=== PATIENT | female | born 1940 | race Caucasian/White ===

== ENCOUNTER 2022-05-22 13:58 | Inpatient (IN) | payer MEDICARE, OTHER ==
[~2022-05-22] VITALS: Ht 165.1 cm; Wt 65.8 kg
[2022-05-22] MEDS ORDERED: guaiFENesin/CODEINE (ROBITUSSIN AC) 10ML UDC PO PRN (14:15)
[2022-05-22] MEDS ORDERED: ACETAMINOPHEN 325 MG TABLET PO PRN (14:15)
[2022-05-22] MEDS ORDERED: ALPRAZolam 0.25 MG (XANAX) TAB PO PRN (14:15)
[2022-05-22] MEDS ORDERED: ONDANSETRON 4 MG (ZOFRAN) ORAL DISSOLVE TAB PO PRN (14:15)
[2022-05-22] MEDS ORDERED: FLEET ENEMA ADULT 1 EA BTL PR PRN (14:15)
[2022-05-22] MEDS ORDERED: LACTULOSE SYRUP 10GM/15ML (ENULOSE) 30ML UDC PO PRN (14:15)
[2022-05-22] MEDS ORDERED: diphenhydrAMINE 25 MG TAB (BENADRYL) PO PRN (14:15)
[2022-05-22] MEDS ORDERED: LOPERAMIDE 2 MG (IMODIUM) TABLET PO PRN (14:15)
[2022-05-22] MEDS ORDERED: BISACODYL 10 MG SUPP (DULCOLAX) PR PRN (14:15)
[2022-05-22] MEDS ORDERED: CALCIUM CARBONATE 500 MG (TUMS) TAB.CHEW PO PRN (14:15)
[2022-05-22] MEDS ORDERED: MELATONIN 3 MG TABLET PO PRN (14:15)
[2022-05-22] MEDS ORDERED: DOCUSATE SODIUM 100 MG (COLACE) CAP PO PRN (14:15)
[2022-05-22] MEDS ORDERED: ALOE25CA2 PO (14:33)
[2022-05-22] MEDS ORDERED: PEDI18TA7 PO (14:33)
[2022-05-22] MEDS ORDERED: APIX2.5T PO (14:33)
[2022-05-22] MEDS ORDERED: HYDR-3924 PO (14:33)
[2022-05-22] MEDS ORDERED: MECO10002 SL (14:33)
[2022-05-22] MEDS ORDERED: TRM50T PO (14:33)
[2022-05-22] MEDS ORDERED: LYSI500C5 PO (14:33)
[2022-05-22] MEDS ORDERED: AMLO-251 PO (14:33)
[2022-05-22] MEDS ORDERED: ACHD5005 PO (14:33)
[2022-05-22] MEDS ORDERED: CHOL10007 PO (14:33)
[2022-05-22] MEDS ORDERED: CYAN100088 PO (14:33)
--- NOTE | 2022-05-22 15:34 | Occupational Therapy Eval ---
OT Evaluation-General/PLF Medical Diagnosis Admission Date 05/22/22 Medical Diagnosis: s/p R hip nailing Onset Date: May 19, 2022 Therapy Diagnosis Therapy Diagnosis: reduced adl status Precautions Precautions/Isolations: Fall Prevention, Standard Precautions Weight Bear Status Weight Bearing Restriction: Touch Toe Bearing Location Restriction: R LE Referral Physician: Patty Coats Reason: Evaluation/Treatment Medical History Pertinent Medical History: HTN Current History Pt reports having a mechanical fall resulting in femoral neck fracture. S/p nailing. TTWB RLE. Per patient, she lives with her spouse in a single story home. Pt reports being independent with both adls and iadls. She was not using any AD at baseline. Reviewed History: Yes Social History Home: Single Level Current Living Status: Spouse Entry Into Home: Stairs With Railing Steps Into Home: 3 ADL-Prior Level of Function SCALE: Activities may be completed with or without assistive devices. 2-Bjujshhsdt-msteefw completes the activity by him/herself with no assistance from a helper. 5-Set-up or Clean-up Assistance-helper sets up or cleans up; patient completes activity. [place] assists only prior to or following the activity. 4-Supervision or Touching Assistance-helper provides verbal cues and/or touching/steadying and/or contact guard assistance as patient completes activity. Assistance may be provided throughout the activity or intermittently. 3-Partial/Moderate Assistance-helper does LESS THAN HALF the effort. [place] lifts, holds or supports trunk or limbs, but provides less than half the effort. 2-Substantial/Maximal Assistance-helper does MORE THAN HALF the effort. [place] lifts or holds trunk or limbs and provides more than half the effort. 8-Zbftadxxk-wszooz does ALL the effort. Patient does none of the effort to complete the activity. Or, the assistance of 2 or more helpers is required for the patient to complete the activity. If activity was not attempted, code reason: 7-Patient Refused. 9-Not Applicable-not attempted and the patient did not perform the activity before the current illness, exacerbation or injury. 10-Not Attempted due to Environmental Limitations-(lack of equipment, weather restraints, etc.). 88-Not Attempted due to Medical Conditions or Safety Concerns. Self Care: Independent Functional Cognition: Independent DME/Equipment: Tub/Shower Drive Self: Yes OT Current Status Subjective Pt denies pain, agreeable to evaluation. Co-treat with PT secondary to fatigue from travel, poor adherence to weight bearing restrictions, reduced activity tolerance, and anticipated need of 2 skilled clinicians to progress indep and safety with adls and functional mobility. Appearance Pt left laying in bed with all needs within reach. Mental Status/Objective Patient Orientation: Person, Place, Situation Attachments: Colostomy/Ileostomy Current Glasses/Contacts: Yes Hearing Aids: No Dentures/Partials: No Hand Dominance: Right Upper Extremity ROM L shoulder: ~170 degrees AROM R shoulder: ~160 degrees AROM, reports pain Elbows-distally WNL Upper Extremity Strength R shoulder not tested secondary to pain L shoulder: 3-/5 Elbows-distally: 4/5 ADL-Treatment Eating (QC): 6 Oral Hygiene (QC): 4 Shower/Bathe Self (QC): 7 Upper Body Dressing (QC): 7 Lower Body Dressing (QC): 7 On/Off Footwear (QC): 4 Toileting Hygiene (QC): 7 Shower/dressing tasks deferred until tomorrow as pt already dressed and reports fatigue from travel. She was able to don/doff bilateral socks/shoes with supervision. Extra time to complete Right but no c/o pain with movements. Anticipate no assist needed to thread BLE's into pants and steadying assist needed for clothing management. Pt stood to complete grooming tasks with close SBA-CGA. Cues for adherence to TTWB precautions with demonstration/education on proper technique. 1 LOB during task with pt able to self recover. Pt is independent for bed mobility. Other Treatments Pt has difficulty with maintaining TTWB with all standing tasks, consistent cues required. Due to poor adherence, pt is instructed to treat RLE as NWB during ambulation. She was able to hop in parallel bars with min cues and SBA-CGA. Increased difficulty notable when transferring activity to walker. Pt stood at elevated mat to complete therapeutic activity while reaching slightly out of DEMARCUS. Focus on improving balance with WB restrictions, endurance, activity tolerance, BUE ROM, and safety needed for self care tasks. Again, consistent cues on maintaining weight bearing status with RLE. No LOB observed, close SBA- CGA for safety throughout activity. Pt fatigues easily and requires several seated rest breaks throughout. Pt felt nauseas and began to throw up after session had concluded on way back to room. Education OT Patient Education: Correct positioning, Modified ADL techniques, Purpose of tx/functional activities, Reviewed precautions, Rehab process, Safety issues, Transfer techniques Teaching Recipient: Patient, Family Teaching Methods: Demonstration, Discussion BIMS CAM BIMS Expression of Ideas and Wants: Without Difficulty Understanding Verbal Content: Understands Brief Interview/Mental Status: Yes IRF MARCUS BIMS: IRF MARCUS BIMS Response (Comments) Value Repitition of Three Words Three 3 Recalls Socks Yes, No Cue Required 2 Recalls Blue Yes, No Cue Required 2 Recalls Bed No, Could Not Recall 0 Year Correct 3 Month Accurate Within 5 Days 2 Day Correct 1 Total 13 [address] Staff Asses. Mental St[address] No Notes: CAM Mental Status Change/Baseline: 0 Inattention: 0 Disorganized thinkin Altered level of consciousness: 0 OT Short Term Goals Short Term Goals Time Frame: May 29, 2022 Eatin Oral hygiene: 5 Toileting hygiene: 4 Shower/bathe self: 4 Upper body dressin Lower body dressin Putting on/taking off footwear: 5 OT Long-Term Goals Long-Term Goals Time Frame: Jun 05, 2022 Acute change in mental status: 0 Inattention: 0 Disorganized thinkin Altered level of consciousness: 0 Eating (QC): 6 Oral Hygiene (QC): 6 Toileting Hygiene (QC): 6 Shower/Bathe Self (QC): 5 Upper Body Dressing (QC): 6 Lower Body Dressing (QC): 6 On/Off Footwear (QC): 6 Additional Goals: 1-Demonstrate ADL Tasks, 2-Verbalize Understanding, 3- ImproveStrength/Kaity 1=Demonstrate adherence to instructed precautions during ADL tasks. 2=Patient will verbalize/demonstrate understanding of assistive devices/modifications for ADL. 3=Patient will improve strength/tolerance for activity to enable patient to perform ADL's. OT Education/Plan Problem List/Assessment Assessment: Decreased Activ Tolerance, Decreased Safety Aware, Impaired Coordination, Impaired Funct Balance, Impaired I ADL's, Impaired Self-Care Skills Discharge Recommendations Plan/Recommendations: Continue POC Therapy Discharge Recommendati: Homemaker Support, Home & Family Equpiment Recommendations-D/C: Bath Chair Treatment Plan/Plan of Care Treatment,Training & Education: Yes Patient would benefit from OT for education, treatment and training to promote independence in ADL's, mobility, safety and/or upper extremity function for ADL's. Plan of Care: ADL Retraining, Functional Mobility, Group Exercise/Act as Ind, UE Funct Exercise/Act Treatment Duration: Jun 05, 2022 Frequency: At least 5 of 7 days/Wk (IRF) Estimated Hrs Per Day: 1.5 hours per day (75-90 min/day ) Agreement: Yes Rehab Potential: Good Time Start Time: 15:25 Stop Time: 16:55 DATE: May 22, 2022 Total Time Billed (hr/min): 90 Billed Treatment Time 1 visit EVM (10 min) ADL x2 (30 min) FA x3 (50 min) OT eval: ([id number]) Co-treat with PT ([id number]) Sia Dobbins OT May 22, 2022 15:34
--- NOTE | 2022-05-22 15:52 | Physical Therapy Evaluation ---
PT Evaluation-General Medical Diagnosis Admission Date Medical Diagnosis: s/p R hip nailing Onset Date: May 19, 2022 Therapy Diagnosis Therapy Diagnosis: impaired mobility Precautions Precautions/Isolations: Fall Prevention, Standard Precautions Weight Bear Status Right Lower Extremity: Right Touch Toe Bearing Left Lower Extremity: Left Full Weight Bearing Referral Physician: Dania Brambila DO Reason for Referral: Evaluation/Treatment Medical History Pertinent Medical History: HTN Reviewed History: Yes Social History Home: Single Level Current Living Status: Spouse Entry Into Home: Stairs With Railing PT Steps Into Home: 3 Prior Prior Level of Function SCALE: Activities may be completed with or without assistive devices. 2-Fzticmsrkw-ltpsyed completes the activity by him/herself with no assistance f rom a helper. 5-Set-up or Clean-up Assistance-helper sets up or cleans up; patient completes activity. [place] assists only prior to or following the activity. 4-Supervision or Touching Assistance-helper provides verbal cues and/or touching/steadying and/or contact guard assistance as patient completes activity. Assistance may be provided throughout the activity or intermittently. 3-Partial/Moderate Assistance-helper does LESS THAN HALF the effort. [place] lifts, holds or supports trunk or limbs, but provides less than half the effort. 2-Substantial/Maximal Assistance-helper does MORE THAN HALF the effort. [place] lifts or holds trunk or limbs and provides more than half the effort. 1-Agcrerrdp-dlorrl does ALL the effort. Patient does none of the effort to complete the activity. Or, the assistance of 2 or more helpers is required for the patient to complete the activity. If activity was not attempted, code reason: 7-Patient Refused. 9-Not Applicable-not attempted and the patient did not perform the activity before the current illness, exacerbation or injury. 10-Not Attempted due to Environmental Limitations-(lack of equipment, weather restraints, etc.). 88-Not Attempted due to Medical Conditions or Safety Concerns. Bed Mobility: 6 Transfers (B,C,W/C): 6 Gait: 6 Stairs: 6 Indoor Mobility (Ambulation): Independent Stairs: Independent Prior Devices Use: None PT Evaluation-Current Subjective Patient arrives via family vehicle, has no complaints of pain, agrees to PT. Will be co-treating with OT due to poor patient mobility, strength, endurance, severe debility, coordinate UE and LE during activity, safety and reduce risk of falls. Pain Section J - Health Conditions 1. Rarely or not at all 2. Occasionally 3. Frequently 4. Almost constantly 8. Unable to answer Pain Effect on Sleep: 2 Pain Interference with Therapy: 2 Pain Interference w/Day-to-Day: 2 Pt/Family Goals to be independent at home Objective Patient Orientation: Person, Place, Situation ROM/Strength ROM Lower Extremities NT Strength Lower Extremities NT Sensory Vision: Wears Glasses Hearing: Functional Hand Dominance: Right Sensation Right Lower Extremit: Intact Sensation Left Lower Extremity: Intact Transfers Roll Left & Right (QC): 4 Sit to Lying (QC): 4 Lying to Sitting/Side of Bed(Q: 4 Sit to Stand (QC): 4 Chair/Jyr-sa-Bbajb Xfer(QC): 4 Toilet Transfer (QC): 4 Car Transfer (QC): 4 CGA Gait Does the Patient Walk?: Yes Mode of Locomotion: Walk Anticipated Mode of Locomotion: Walk Walk 10 feet (QC): 4 Walk 50 ft with 2 Turns(QC): 88 Walk 150 ft (QC): 88 Walking 10ft/uneven surface-QC: 4 Distance: 10', 25', 10' Gait Assistive Device: FWW Comments/Gait Description CGA, Patient walks with slow gait speed and [place] not abide by toe touch weight bearing on R foot. Patient fatigues quickly. Therapist has to stop ambulation due to non-compliance with TTWB Wheelchair Training Does the Pt Use a Wheelchair?: Yes Distance: 100' Wheel 50 ft with 2 turns (QC): 3 Wheel 150 ft (QC): 88 Type of Wheelchair: Manual Min assist, patient needs assist when turning, cues for direction on how to turn, patient has a lot of difficulty with it. Stairs #of Steps: 1 1 Step (curb) (QC): 4 4 Steps (QC): 88 12 Steps (QC): 88 Walking Assistive Device: Walker CGA Balance Sitting Static: Normal Sitting Dynamic: Normal Standing Static: Normal Standing Dynamic: Fair Picking up an Object (QC): 4 (CGA using clinical documentation nurse) Treatment Ambulation, W/C Propulsion, Standing Balance with cone transfers side to side, parallel bar gait training. PT performed bed mobility and transfers, ambulation, WC mobility, stair training, balance and positioning during cone activity, OT performed dressing, ADL's, cone activity, UE positioning and safety during activity. Assessment/Needs Patient needs constant verbal cueing to remain TTWB on L leg. Patient fatigues quickly with ambulation and has deminished coordinaton with W/C proprulsion. Patient in bed post-tx with tray, phone, nurse notified nurse call missing from room. Rehab Potential: Fair PT Short Term Goals Short Term Goals Time Frame: May 22, 2022 Sit to stand: 4 (SBA) Chair/wxx-bt-mbvwl transfer: 4 (SBA) Walk 10 feet: 4 (SBA) Walk 50 feet with two turns: 4 (SBA) Walk 150 feet: 4 (SBA) PT Strategic Buyer Goals Longterm Goals PT Strategic Buyer Goals Time Frame: Jun 12, 2022 Roll Left to Right (QC): 6 Sit to Lying (QC): 6 Lying-Sitting on Side/Bed(QC): 6 Sit to Stand (QC): 6 Chair/Aup-fc-Nykaa Xfer(QC): 6 Toilet/Commode Transfer (QC): 6 Car Transfer (QC): 6 Does the Patient Walk: Yes Walk 10 feet (QC): 6 Walk 10ft-Uneven Surface(QC): 6 Walk 50ft with 2 Turns (QC): 6 Walk 150 ft (QC): 6 Wheel 50 feet with 2 turns (QC: 6 Type: Manual Wheel 150 feet: 6 Type: Manual 1 Step (curb) (QC): 6 4 Steps (QC): 6 12 Steps (QC): 88 Picking up an Object (QC): 6 PT Plan Problem List Problem List: Activity Tolerance, Functional Strength, Safety, Balance, Gait, Transfer, Bed Mobility, ROM Treatment/Plan Treatment Plan: Continue Plan of Care Treatment Plan: Bed Mobility, Education, Functional Activity Kaity, Functional Strength, Group Therapy, Gait, Safety, Therapeutic Exercise, Transfers Treatment Duration: Jun 12, 2022 Frequency: At least 5 of 7 days/Wk (IRF) Estimated Hrs Per Day: 1.5 hours per day Patient and/or Family Agrees t: Yes Safety Risks/Education Patient Education: Gait Training, Transfer Techniques, Steps, Correct Positioning, Safety Issues Teaching Recipient: Patient Teaching Methods: Demonstration, Discussion Response to Teaching: Reinforcement Needed Discharge Recommendations Plan Patient will perform bed mobility and transfer training, balance and endurance training, functional strengthening, stair training, gait training, and education, to improve functional mobility and independence at home. Therapy Discharge Recommendati: Home & Family, Post Acute PT Time Time In: 1514 Time Out: 1654 DATE: May 22, 2022 Total Billed Treatment Time: 90 Total Billed Treatment 1 visit EVM 10' FA 80' PT eval from [id number], OT eval from [id number], co-treat from [id number] ELAINE LOVELL PT May 22, 2022 15:52
--- NOTE | 2022-05-22 17:18 | Progress Note ---
MORALES WALL 05/22/22 1718: Progress Note S Patient is an 82 year old woman admitted to inpatient rehab following a fracture of her right femoral neck after falling on concrete last Peter, 05/17. Her fracture was treated with percutaneous pinning and she is up and mobilizing with assistance. Her primary care doctor is Dr. Mejia in [place]. She has a past medical history of CKD stage III and hypertension. 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 No previous history of cardiac or pulmonary disease. Current medications include tramadol, hydrocodone, L-lysine, norvasc, hydralazine, apixaban, B12, cholecalciferol, and flintstones vitamins with iron. She is on a cardiac diet. Experiences no pain while at rest. Notes minor nausea since around noon as well as fatigue even though she slept well the previous night. Denies SOB, chest pain, chills, urinary issues, or feeling feverish. She has a colostomy bag and notes no problems with stool consistency. Her goal on discharge is to go home with her spouse. O Cardiac: holosystolic murmur noted with possible AV block, no S3 or S4 heart sounds auscultated, pulses equal bilaterally in radial and dorsalis pedis arteries (2+), no apparent JVD Pulmonary: lungs clear to auscultation bilaterally A/P Status post right femoral neck fracture - fracture stabilized through percutaneous pinning. Patient to continue OT and PT. Monitor for signs of infection or anemia. Goal to be discharged home with spouse. May need a bone scan to assess further risk of fractures. Continue prescribed pain medications as needed. Hypertension - continue medical management with norvasc and hydralazine. Continue cardiac diet. Chronic kidney disease Stage III - continue medical management, chemistry panel to assess kidney function. Avoid nephrotoxic drugs. Possible aortic stenosis - echocardiogram to assess for structural abnormalities Possible AV block - may need EKG to assess for possible arrhythmia DVT prophylaxis - apixaban DANIA BRAMBILA DO 05/23/22 0558: Supervisory-Addendum Brief Verification & Attestation Participated in pt care: history, MDM, physical Personally performed: exam, history, MDM, supervision of care Care discussed with: Medical Student Procedures: n/a Results interpretation: Verified all documentation Verification and Attestation of Medical Student E/M Service A medical student performed and documented this service in my presence. I reviewed and verified all information documented by the medical student and made modifications to such information, when appropriate. I personally performed the physical exam and medical decision making. Dania Brambila, May 23, 2022,05:58 MORALES WALL May 22, 2022 17:18 DANIA BRAMBILA DO May 23, 2022 05:58
--- NOTE | 2022-05-22 17:29 | PM&R Progress Note ---
Subjective HPI/CC On Admission Date Seen by Provider: May 22, 2022 Time Seen by Provider: 16:00 Subjective/Events-last exam Chief complaint: Right femoral neck fracture HPI: This is an 82-year-old female clinic patient of Dr. Black in [place] who presents following a successful right femoral neck fracture repair at [facility]. She has a past medical history of chronic kidney disease and hypertension. Her prior level of function was independent without the use of assistive device. She lives at home with her spouse. She does have a colostomy. S Patient is an 82 year old woman admitted to inpatient rehab following a fracture of her right femoral neck after falling on concrete last Friday, 05/17. Her fracture was treated with percutaneous pinning and she is up and mobilizing with assistance. Her primary care doctor is Dr. Mejia in [place]. She has a past medical history of CKD stage III and hypertension. 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 No previous history of cardiac or pulmonary disease. Current medications include tramadol, hydrocodone, L-lysine, norvasc, hydralazine, apixaban, B12, cholecalciferol, and flintstones vitamins with iron. She is on a cardiac diet. Experiences no pain while at rest. Notes minor nausea since around noon as well as fatigue even though she slept well the previous night. Denies SOB, chest pain, chills, urinary issues, or feeling feverish. She has a colostomy bag and notes no problems with stool consistency. Her goal on discharge is to go home with her spouse. O Cardiac: holosystolic murmur noted with possible AV block, no S3 or S4 heart sounds auscultated, pulses equal bilaterally in radial and dorsalis pedis arteries (2+), no apparent JVD Pulmonary: lungs clear to auscultation bilaterally A/P Status post right femoral neck fracture - fracture stabilized through percutaneous pinning. Patient to continue OT and PT. Monitor for signs of infection or anemia. Goal to be discharged home with spouse. May need a bone scan to assess further risk of fractures. Continue prescribed pain medications as needed. Hypertension - continue medical management with norvasc and hydralazine. Continue cardiac diet. Chronic kidney disease Stage III - continue medical management, chemistry panel to assess kidney function. Avoid nephrotoxic drugs. Possible aortic stenosis - echocardiogram to assess for structural abnormalities Possible AV block - may need EKG to assess for possible arrhythmia DVT prophylaxis - apixaban Objective Exam Vital Signs Vital Signs Date Time Temp Pulse Resp B/P (MAP) Pulse Ox O2 Delivery O2 Flow Rate FiO2 05/22/22 20:28 92 Room Air 05/22/22 20:00 36.7 78 16 145/67 (93) Capillary Refill : Results/Procedures Lab Laboratory Tests 05/23/22 05:20 Patient resulted labs reviewed. FIM Transfers Therapy Code Descriptions/Definitions Functional [place] Measure: 0=Not Assessed/NA 4=Minimal Assistance 1=Total Assistance 5=Supervision or Setup 2=Maximal Assistance 6=Modified [place] 3=Moderate Assistance 7=Complete IndependenceSCALE: Activities may be completed with or without assistive devices. 9-Zawvnrebwk-uoxohrk completes the activity by him/herself with no assistance from a helper. 5-Set-up or Clean-up Assistance-helper sets up or cleans up; patient completes activity. [place] assists only prior to or following the activity. 4-Supervision or Touching Assistance-helper provides verbal cues and/or touching/steadying and/or contact guard assistance as patient completes activity. Assistance may be provided throughout the activity or intermittently. 3-Partial/Moderate Assistance-helper does LESS THAN HALF the effort. [place] lifts, holds or supports trunk or limbs, but provides less than half the effort. 2-Substantial/Maximal Assistance-helper does MORE THAN HALF the effort. [place] lifts or holds trunk or limbs and provides more than half the effort. 1-Zlabghffd-lpzaxt does ALL the effort. Patient does none of the effort to complete the activity. Or, the assistance of 2 or more helpers is required for the patient to complete the activity. If activity was not attempted, code reason: 7-Patient Refused. 9-Not Applicable-not attempted and the patient did not perform the activity before the current illness, exacerbation or injury. 10-Not Attempted due to Environmental Limitations-(lack of equipment, weather restraints, etc.). 88-Not Attempted due to Medical Conditions or Safety Concerns. Roll Left to Right (QC): 4 Sit to Lying (QC): 4 Sit to Stand (QC): 4 Chair/Vmx-nd-Jifgp Xfer(QC): 4 Car Transfer (QC): 4 Gait Training Does the Patient Walk?: Yes Walk 10 feet (QC): 4 Walk 50 ft with 2 Turns(QC): 88 Walk 150 ft (QC): 88 Walking 10ft/uneven surface-QC: 4 Gait Assistive Device: FWW Wheelchair Training Does the Pt Use a Wheelchair?: Yes Distance: 100' Wheel 50 ft with 2 turns (QC): 3 Wheel 150 ft (QC): 88 Type of Wheelchair: Manual Stair Training 1 Step (curb) (QC): 4 4 Steps (QC): 88 12 Steps (QC): 9 Balance Picking up an Object (QC): 4 (CGA using bobbin coil winder) ADL-Treatment Eating (QC): 6 Oral Hygiene (QC): 4 Shower/Bathe Self (QC): 7 Upper Body Dressing (QC): 7 Lower Body Dressing (QC): 7 On/Off Footwear (QC): 4 Toileting Hygiene (QC): 7 Assessment/Plan Assessment and Plan (1) Right femoral shaft fracture DEBBIE LILLY DO May 22, 2022 17:29
[2022-05-22] MEDS ORDERED: PATIENT MAY USE OWN MEDS, ALL MC SCH (17:30)
[2022-05-22 20:00] VITALS: BP 145/67
[2022-05-22] MEDS: SENNA W/DOCUSATE (SENOKOT S) TABLET PO SCH (20:15)
[2022-05-22] MEDS: hydrALAZINE (APRESOLINE) 25 MG TAB PO SCH (20:15)
[2022-05-22] MEDS: polyethylene glycoL POWDER 17 GM (MIRALAX) PACK PO SCH (20:15)
[2022-05-22] MEDS: APIXABAN 2.5 MG (ELIQUIS) TABLET PO SCH (20:15)
[2022-05-22] MEDS: DOCUSATE SODIUM 100 MG (COLACE) CAP PO SCH (20:15)
[2022-05-22] MEDS ORDERED: NON-FORMULARY MEDICATION 1 EA EA (Hydralazine HCl 50 MG) PO SCH (21:00)
[2022-05-23 05:30] LABS: BASOPHILS % (AUTO) 0 % (0-10); EOSINOPHILS # (AUTO) 0.2 10^3/uL (0.0-0.3); EOSINOPHILS % (AUTO) 3 % (0-10); HEMATOCRIT 34 % (35-52); HEMOGLOBIN 10.9 g/dL (11.5-16.0); LYMPHOCYTES # (AUTO) 0.9 10^3/uL (1.0-4.0); LYMPHOCYTES % (AUTO) 17 % (12-44); MEAN CORPUSCULAR HEMOGLOBIN 30 pg (25-34); MEAN CORPUSCULAR HGB CONC 33 g/dL (32-36); MEAN CORPUSCULAR VOLUME 94 fL (80-99); MEAN PLATELET VOLUME 9.8 fL (9.0-12.2); MONOCYTES # (AUTO) 0.4 10^3/uL (0.0-1.0); MONOCYTES % (AUTO) 8 % (0-12); NEUTROPHILS % (AUTO) 72 % (42-75); PLATELET COUNT 236 10^3/uL (130-400); WHITE BLOOD COUNT 5.5 10^3/uL (4.3-11.0)
[2022-05-23 05:39] LABS: ALBUMIN 3.4 GM/DL (3.2-4.5); POTASSIUM 4.8 MMOL/L (3.6-5.0)
[2022-05-23 05:40] LABS: CALCIUM 9.2 MG/DL (8.5-10.1)
[2022-05-23 05:41] LABS: TOTAL PROTEIN 6.3 GM/DL (6.4-8.2)
[2022-05-23 05:43] LABS: BILIRUBIN,TOTAL 0.3 MG/DL (0.1-1.0)
[2022-05-23 05:45] LABS: CREATININE SERUM 1.32 MG/DL (0.60-1.30)
--- NOTE | 2022-05-23 06:08 | PM&R Post Admission Assessment ---
PM&R HP Date of Visit: May 22, 2022 Time of Visit: 16:00 History of Present Illness Chief complaint: Right femoral neck fracture HPI: This is an 82-year-old female clinic patient of Dr. Black in [place] who presents following a successful right femoral neck fracture repair at [facility]. She has a past medical history of chronic kidney disease and hypertension. Her prior level of function was independent without the use of assistive device. She lives at home with her spouse. She does have a colostomy. S Patient is an 82 year old woman admitted to inpatient rehab following a fracture of her right femoral neck after falling on concrete last Friday, 05/17. Her fracture was treated with percutaneous pinning and she is up and mobilizing with assistance. Her primary care doctor is Dr. Mejia in [place]. She has a past medical history of CKD stage III and hypertension. 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 No previous history of cardiac or pulmonary disease. Current medications include tramadol, hydrocodone, L-lysine, norvasc, hydralazine, apixaban, B12, cholecalciferol, and flintstones vitamins with iron. She is on a cardiac diet. Experiences no pain while at rest. Notes minor nausea since around noon as well as fatigue even though she slept well the previous night. Denies SOB, chest griselda n, chills, urinary issues, or feeling feverish. She has a colostomy bag and notes no problems with stool consistency. Her goal on discharge is to go home with her spouse. O Cardiac: holosystolic murmur noted with possible AV block, no S3 or S4 heart sounds auscultated, pulses equal bilaterally in radial and dorsalis pedis arteries (2+), no apparent JVD Pulmonary: lungs clear to auscultation bilaterally A/P Status post right femoral neck fracture - fracture stabilized through percutaneous pinning. Patient to continue OT and PT. Monitor for signs of infection or anemia. Goal to be discharged home with spouse. May need a bone scan to assess further risk of fractures. Continue prescribed pain medications as needed. Hypertension - continue medical management with norvasc and hydralazine. Continue cardiac diet. Chronic kidney disease Stage III - continue medical management, chemistry panel to assess kidney function. Avoid nephrotoxic drugs. Possible aortic stenosis - echocardiogram to assess for structural abnormalities Possible AV block - may need EKG to assess for possible arrhythmia DVT prophylaxis - apixaban Past Envkdxt-Iwygdu-Dbhiso Hx Past Med/Social Hx: Reviewed Nursing Past Med/Soc Hx, Reviewed and Corrections made Patient Social History Marrital Status: Employed/Student: retired Alcohol Use: Denies Use Smoking Status: Never a Smoker Past Medical History Surgeries: Abdominal, Orthopedic Cardiac: High Cholesterol, Valvular Heart Disease Prior Level of Function Bed Mobility: 6 Transfers: 6 Gait: 6 Stairs: 6 Indoor Mobility (Ambulation): Independent Stairs: Independent Prior Devices Use: None Self Care: Independent Functional Cognition: Independent Drive Self: Yes Current Level of Fuctioning Roll Left to Right: 4 Sit to Lyin Lying to Sitting/Side of Bed: 4 Sit to Stand: 4 Chair/Zad-am-Efhgb Xfer: 4 Car Transfer: 4 Does the Patient Walk: Yes Mode of Locomotion: Walk Anticipated Mode of Locomotion: Walk Walk 10 feet: 4 Walk 50 ft with 2 Turns: 88 Walk 150 ft: 88 Walking 10ft on uneven surface: 4 Gait Assistive Device: FWW Does the Pt Use a Wheelchair: Yes Wheelchair Distance: 100' Wheel 50 ft with 2 turns: 3 Wheel 150 ft: 88 Type of Wheelchair: Manual 1 Step (curb): 4 4 Steps: 88 Walking Assistive Device: Walker 12 Steps: 9 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) Eatin Oral Hygiene: 4 Shower/Bathe Self: 7 Upper Body Dressin Lower Body Dressin On/Off Footwear: 4 Toileting Hygiene: 7 PM&R Allergy/Meds/Data Review Allergies Coded Allergies: No Allergy Information Available (Unverified , 05/22/22) Home Medications Scheduled Aloe Vera (Aloe Vera), 25 MG PO DAILY, (Reported) Amlodipine Besylate (Amlodipine Besylate), 10 MG PO DAILY, (Reported) Apixaban (Eliquis), 2.5 MG PO BID, (Reported) Cholecalciferol (Vitamin D3) (Vitamin D3), 25 MCG PO DAILY, (Reported) Hydralazine HCl (Hydralazine HCl), 50 MG PO BID, (Reported) Lysine HCl (l-Lysine), 500 MG PO DAILY, (Reported) Mecobalamin (B-12), 1,000 MCG SL DAILY, (Reported) Pediatric Multivit No.203/Iron (Flintstones with Iron Tab Chew), 1 EA PO DAILY, (Reported) Scheduled PRN Hydrocodone/Acetaminophen (Hydrocodone-Acetamin 5-325 mg), 1 TAB PO Q4H PRN for PAIN-MODERATE (5-7), (Reported) Tramadol HCl (Tramadol HCl), 50-100 MG PO Q6H PRN for PAIN-MODERATE (5-7), (Reported) Discontinued Medications Cyanocobalamin (Vitamin B-12) (B-12), 1,000 MCG PO DAILY, (Reported) Discontinued Reason: No Longer Taking Current Medications Current Medications Reviewed Laboratory Data Laboratory Tests 05/23/22 05:20: White Blood Count 5.5, Red Blood Count 3.58L, Hemoglobin 10.9L, Hematocrit 34L, Mean Corpuscular Volume 94, Mean Corpuscular Hemoglobin 30, Mean Corpuscular Hemoglobin Concent 33, Red Cell Distribution Width 12.6, Platelet Count 236, Mean Platelet Volume 9.8, Immature Granulocyte % (Auto) 0, Neutrophils (%) (Auto) 72, Lymphocytes (%) (Auto) 17, Monocytes (%) (Auto) 8, Eosinophils (%) (Auto) 3, Basophils (%) (Auto) 0, Neutrophils # (Auto) 4.0, Lymphocytes # (Auto) 0.9L, Monocytes # (Auto) 0.4, Eosinophils # (Auto) 0.2, Basophils # (Auto) 0.0, Immature Granulocyte # (Auto) 0.0, Sodium Level 139, Potassium Level 4.8, Chloride Level 105, Carbon Dioxide Level 26, Anion Gap 8, Blood Urea Nitrogen 22H, Creatinine 1.32H, Estimat Glomerular Filtration Rate 41, BUN/Creatinine Ratio 17, Glucose Level 123H, Calcium Level 9.2, Corrected Calcium 9.7, Total Bilirubin 0.3, Aspartate Amino Transf (AST/SGOT) 16, Alanine Aminotransferase ( ALT/SGPT) 6, Alkaline Phosphatase 64, Total Protein 6.3L, Albumin 3.4 Review of Systems Constitutional: see HPI, malaise, weakness EENTM: no symptoms reported Respiratory: no symptoms reported Cardiovascular: no symptoms reported Gastrointestinal: no symptoms reported Genitourinary: no symptoms reported Musculoskeletal: joint pain Skin: no symptoms reported All Other Systems Reviewed Negative Unless Noted: Yes Physical Exam Physical Exam Vital Signs Vital Signs - First Documented 05/22/22 20:00 Temp 36.7 Pulse 78 Resp 16 B/P (MAP) 145/67 (93) Pulse Ox 92 O2 Delivery Room Air Capillary Refill : Height, Weight, BMI Height: '" Weight: lbs. oz. kg; 24.68 BMI Method: General Appearance: No Apparent Distress, WD/WN, Chronically ill Eyes: Bilateral Eye Normal Inspection, Bilateral Eye PERRL HEENT: PERRL/EOMI, Normal ENT Inspection, Pharynx Normal Neck: Full Range of Motion, Normal Inspection, Non Tender, Supple, Carotid Bruit Respiratory: Chest Non Tender, Lungs Clear, Normal Breath Sounds, No Accessory Muscle Use, No Respiratory Distress Cardiovascular: Regular Rate, Rhythm, No Edema, No Gallop, No JVD, Normal Peripheral Pulses, Systolic Murmur Gastrointestinal: Normal Bowel Sounds, No Organomegaly, No Pulsatile Mass, Non Tender, Soft Back: Normal Inspection, No CVA Tenderness, No Vertebral Tenderness Extremity: Normal Capillary Refill, Normal Inspection, Normal Range of Motion (Except right leg), Non Tender, No Calf Tenderness, No Pedal Edema Neurologic/Psychiatric: Alert, Oriented x3, Normal Mood/Affect, room server II-XII Norm as Tested, Abnormal Gait, Motor Weakness (Right leg) Skin: Normal Color, Warm/Dry Lymphatic: No Adenopathy PM&R Medical Assessment & Plan REHAB/MEDICAL ASSESSMENT AND PLAN: REHAB IMPAIRMENT GROUP: Right hip fracture ETIOLOGIC DIAGNOSIS: Right hip fracture The comorbidities that impact the patients function and/or functional outcome by: advanced age, fall risk, valvular disease REHAB PLAN: The patient is being admitted to our comprehensive inpatient rehabilitation faci lity and can tolerate the intensity of service consisting of at least: 180 minutes of therapy a day, 5 out of 7 days a week Rehab treatment will consist of: PT OT will focus on regaining function in order to prevent falls and use AD devices in order to regain function in order to return home The patient/family has a good understanding of our discharge process and will benefit from an interdisciplinary inpatient rehabilitation program. The patient has potential to make improvement and is in need of at least two of the following multidisciplinary therapies including but not limited to physical, occupational, speech, and prosthetics and orthotics. Additionally the patient will need services from respiratory, nutritional services, wound care, psychology, etc. (Customize this to each patient). Given the patients complex condition and risk of further medical complications, rehabilitation services cannot be safely or effectively provided at a lower level of care such as a long-term facility. BARRIERS TO DISCHARGE: Right leg pain ESTIMATED LOS: 7 days DISPOSITION: Home RELEVANT CHANGES SINCE PREADMISSION SCREENING: I have compared the patients medical and functional status at the time of the preadmission screening and there are: no changes PROGNOSIS: Good REHABILITATION GOALS: 1. PT OT will focus on regaining function in order to prevent falls and use AD devices in order to regain function in order to return home All the above goals were reviewed with the patient and he/she is in agreement. By signing this document, I acknowledge that I have personally performed a full physical examination on this patient within 24 hours of admission to this inpatient rehabilitation facility and have determined the patient to be able to tolerate the above course of treatment at an intensive level for a reasonable period of time. I will be completing a detailed individualized Plan of Care for this patient by day #4 of the patients stay based upon the Preadmission Screen, the Post-Admission Evaluation, and the therapy evaluations. Admission Dx/Comorbidities: (1) Right femoral shaft fracture ICD Codes: S72.301A - Unspecified fracture of shaft of right femur, initial encounter for closed fracture Assessment/Plan Assessment and Plan Assess & Plan/Chief Complaint Assessment: Right femoral neck fracture status post uncomplicated repair Hypertension Cardiac murmur obtaining echocardiogram Chronic kidney disease Colostomy status Plan: Pain control Home meds Intensive rehab DEBBIE LILLY DO May 23, 2022 06:08
[2022-05-23 08:00] VITALS: BP 155/73
--- NOTE | 2022-05-23 08:13 | ST Cognitive Linguistic Eval ---
Speech Evaluation-General Medical Diagnosis s/p R Hip Nailing Onset Date: May 19, 2022 Therapy Diagnosis Therapy Diagnosis: Intact Cognition (Baseline) Precautions Precautions: Fall Precautions/Isolations: Fall Prevention, Standard Precautions Referral Referring Physician: Dr. Brambila Reason for Referral: Evaluation/Treatment Medical History Pertinent Medical History: HTN Current History The patient is an 82 year-old female with a past medical history of HTN, who presented to the acute rehabilitation unit following a fall resulting in a right femoral neck fracture. Reviewed History: Yes Social History Current Living Status: Spouse Speech PLF-Current Status Prior Level of Function The patient denied concerns with her speech, language, or cognition. Subjective The patient was seated upright in her recliner, awake and alert, upon entrance to her room by the clinician. The patient greeted the clinician appropriately and was agreeable to participation in the cognitive linguistic assessment. Language Eval: Auditory Comprehends Simple Yes/No Ques: Functional Indent/Objects Multiple [place]: Functional Follows 1-Step Commands: Functional Follows General Conversations: Functional Language Eval: Verbal Language Completes Spontaneous Greeting: Functional Produces Auto, Serial Info: Functional Word Finding: Functional Requests Basic Needs: Functional States Basic Personal Info: Functional Expresses Complex Ideas: Functional Language Evaluation: Reading Follows Simple Written Direct: Functional Language Evaluation: Writing Writes to Simple Dictation: Functional Cognitive Patient Orientation The patient was independently oriented to self, location, month, day of the week, date, and year. Objective Cognitive Domain Attention: WNL Memory: WNL Problem Solving: Functional Executive Functions: WNL Visuospatial Skills: WNL Composite Severity Rating: WNL Clock Drawing Severity Rating: WNL Objective Formal/Standardized Tests [facility] Mental Status Exam (UMS) Results The patient demonstrated a result of +28/30 on the SLUMS correlating to a cognitive linguistic score within normal limits. Oral Motor/Speech Production The patient does not display dysarthria or apraxia of speech. The patient is 100% intelligible in known and unknown contexts. Impression The patient demonstrated intact cognitive linguistic skills. Speech-Plan Treatment Plan Speech Therapy Treatment Plan: Discontinue ST Treatment Duration: May 23, 2022 Frequency: 1 time per week Estimated Hrs Per Day: .5 hour per day Rehab Potential: Good Safety Risks/Education Teaching Recipient: Patient Teaching Methods: Discussion Response to Teaching: Verbalize Understanding Education Topics Provided: Results, Recommendations, Plan of Care Time Speech Therapy Time In: 10:15 Speech Therapy Time Out: 10:45 DATE: May 23, 2022 Total Billed Time: 30 Billed Treatment Time 1, RUPINDER BARNES ELIZ[facility]ETH ST May 23, 2022 08:13
[2022-05-23] MEDS: hydrALAZINE (APRESOLINE) 25 MG TAB PO SCH ×2 (08:26→20:41)
[2022-05-23] MEDS: VITAMIN D3 25 MCG (1,000 UNITS) TABLET PO SCH (08:26)
[2022-05-23] MEDS: amLODIPine 10 MG (NORVASC) TAB PO SCH (08:26)
[2022-05-23] MEDS: SENNA W/DOCUSATE (SENOKOT S) TABLET PO SCH ×2 (08:26→20:55)
[2022-05-23] MEDS: DOCUSATE SODIUM 100 MG (COLACE) CAP PO SCH ×2 (08:26→20:55)
[2022-05-23] MEDS: MULTIVITAMINS LIQUID 15 ML UDC PO SCH ×2 (08:26→08:27)
--- NOTE | 2022-05-23 08:42 | Speech Therapy Progress Note ---
Therapy Progress Note Speech pathology attempted completion of the cognitive linguistic assessment at 0830. At this time, the patient is undergoing a procedure. ST will re-attempt the evaluation at 1015. ASHLEY DIAZ May 23, 2022 08:42
[2022-05-23] MEDS ORDERED: [UNRECOGNIZED DRUG - REMARK] PO SCH (09:00)
[2022-05-23] MEDS ORDERED: ALOE VERA 25 MG PO SCH (09:00)
[2022-05-23] MEDS ORDERED: NON-FORMULARY MEDICATION 1 EA EA (Cholecalciferol (Vitamin D3) (Vitamin D3) 25 MCG) PO SCH (09:00)
[2022-05-23] MEDS ORDERED: LYSINE HCL 500 MG PO SCH (09:00)
[2022-05-23] MEDS: polyethylene glycoL POWDER 17 GM (MIRALAX) PACK PO SCH ×2 (09:17→20:55)
[2022-05-23] MEDS: APIXABAN 2.5 MG (ELIQUIS) TABLET PO SCH ×2 (09:17→20:41)
--- NOTE | 2022-05-23 10:19 | Occupational Ther Daily Note ---
OT Current Status-Daily Note Subjective Pt laying in bed. She agrees to a shower. Appearance Pt left sitting in recliner with all needs within reach. Mental Status/Objective Patient Orientation: Person, Place, Time, Situation Attachments: Colostomy/Ileostomy ADL-Treatment Therapy Code Descriptions/Definitions Functional [place] Measure: 0=Not Assessed/NA 4=Minimal Assistance 1=Total Assistance 5=Supervision or Setup 2=Maximal Assistance 6=Modified [place] 3=Moderate Assistance 7=Complete IndependenceSCALE: Activities may be completed with or without assistive devices. 0-Lnnfgbidrk-hkbvyzt completes the activity by him/herself with no assistance from a helper. 5-Set-up or Clean-up Assistance-helper sets up or cleans up; patient completes activity. Lorenzo assists only prior to or following the activity. 4-Supervision or Touching Assistance-helper provides verbal cues and/or touching/steadying and/or contact guard assistance as patient completes activity. Assistance may be provided throughout the activity or intermittently. 3-Partial/Moderate Assistance-helper does LESS THAN HALF the effort. Lorenzo lifts, holds or supports trunk or limbs, but provides less than half the effort. 2-Substantial/Maximal Assistance-helper does MORE THAN HALF the effort. Lorenzo lifts or holds trunk or limbs and provides more than half the effort. 2-Cobry[place]ne-ervwyl does ALL the effort. Patient does none of the effort to complete the activity. Or, the assistance of 2 or more helpers is required for the patient to complete the activity. If activity was not attempted, code reason: 7-Patient Refused. 9-Not Applicable-not attempted and the patient did not perform the activity before the current illness, exacerbation or injury. 10-Not Attempted due to Environmental Limitations-(lack of equipment, weather restraints, etc.). 88-Not Attempted due to Medical Conditions or Safety Concerns. Oral Hygiene (QC): 4 Shower/Bathe Self (QC): 4 Upper Body Dressing (QC): 5 Lower Body Dressing (QC): 4 On/Off Footwear: 5 Toileting Hygiene (QC): 4 Toilet Transfer (QC): 4 Pt often plops into chairs, bed, etc. when going to sit. Pt requires constant cues for following TTWB with minimal follow through/retention of what TTWB precautions mean. Pt transferred to toilet with SBA for safety. Pt able to perform toileting hygiene with SBA. Pt completes shower 75% in sitting, only standing to wash quynh-area. Pt able to don LB clothing with SBA for when pt stood to pull underwear/pants over hips. Pt able to don UB clothing with set up assist. Pt stood at sink with SBA for grooming tasks. No LOB and unsteadiness noted during session. Education and demonstration about differences about shower chair and shower bench was given. Pt reported having a smaller bathroom with the toilet very close to the tub, so a shower chair would be better for her. Pt able to transfer into both chair and bench with SBA and verbal cues for technique. Other Treatment Pt required cues, education and demonstration for propelling w/c properly, with fair follow through. Pt completed 1x10 UE exercises with yellow theraband. Pt educated on importance of performing exercises 2-3 x/day to increase UE strength to improve ambulation and transfers while following TTWB. Education OT Patient Education: Correct positioning, Energy conservation, Exercise program, Home exercise program, Modified ADL techniques, Progress toward Goal/Update tx plan, Purpose of tx/functional activities, Reviewed precautions, Rehab process, Safety issues, Transfer techniques, W/C management Teaching Recipient: Patient Teaching Methods: Demonstration, Discussion Response to Teaching: Verbalize Understanding, Return Demonstration, Reinforcement Needed OT Short Term Goals Short Term Goals Time Frame: May 29, 2022 Eatin Oral hygiene: 5 Toileting hygiene: 4 Shower/bathe self: 4 Upper body dressin Lower body dressin Putting on/taking off footwear: 5 OT Detention Goals Manager City Goals Time Frame: Jun 05, 2022 Acute change in mental status: 0 Inattention: 0 Disorganized thinkin Altered level of consciousness: 0 Eating (QC): 6 Oral Hygiene (QC): 6 Toileting Hygiene (QC): 6 Shower/Bathe Self (QC): 5 Upper Body Dressing (QC): 6 Lower Body Dressing (QC): 6 On/Off Footwear (QC): 6 Additional Goals: 1-Demonstrate ADL Tasks, 2-Verbalize Understanding, 3- ImproveStrength/Kaity 1=Demonstrate adherence to instructed precautions during ADL tasks. 2=Patient will verbalize/demonstrate understanding of assistive devices/modifications for ADL. 3=Patient will improve strength/tolerance for activity to enable patient to perform ADL's. OT Education/Plan Problem List/Assessment Assessment: Decreased Activ Tolerance, Decreased Safety Aware, Decreased UE Strength, Impaired Coordination, Impaired Funct Balance, Impaired I ADL's, Impaired Self-Care Skills Discharge Recommendations Plan/Recommendations: Continue POC Equpiment Recommendations-D/C: Bath Chair Treatment Plan/Plan of Care Treatment,Training & Education: Yes Patient would benefit from OT for education, treatment and training to promote independence in ADL's, mobility, safety and/or upper extremity function for ADL's. Plan of Care: ADL Retraining, Functional Mobility, Group Exercise/Act as Ind, UE Funct Exercise/Act Treatment Duration: Jun 05, 2022 Frequency: At least 5 of 7 days/Wk (IRF) Estimated Hrs Per Day: 1.5 hours per day (75-90 min/day ) Agreement: Yes Rehab Potential: Good Time Start Time: 09:00 Stop Time: 10:15 DATE: May 23, 2022 Total Time Billed (hr/min): 75 Billed Treatment Time 1 visit ADL x4 (60 min) EX (15 min) Sia Dobbins OT May 23, 2022 10:19
--- NOTE | 2022-05-23 11:48 | PM&R Progress Note ---
Subjective HPI/CC On Admission Date Seen by Provider: May 23, 2022 Time Seen by Provider: 12:00 Subjective/Events-last exam 05/23/22: Patient doing well Pain is controlled without pain pills Labs reviewed Echo ordered No other concerns Chief complaint: Right femoral neck fracture HPI: This is an 82-year-old female clinic patient of Dr. Black in [place] who presents following a successful right femoral neck fracture repair at [facility]. She has a past medical history of chronic kidney disease and h ypertension. Her prior level of function was independent without the use of assistive device. She lives at home with her spouse. She does have a colostomy. S Patient is an 82 year old woman admitted to inpatient rehab following a fracture of her right femoral neck after falling on concrete last Friday, 05/17. Her fracture was treated with percutaneous pinning and she is up and mobilizing with assistance. Her primary care doctor is Dr. Mejia in [place]. She has a past medical history of CKD stage III and hypertension. 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 No previous history of cardiac or pulmonary disease. Current medications include tramadol, hydrocodone, L-lysine, norvasc, hydralazine, apixaban, B12, cholecalciferol, and flintstones vitamins with iron. She is on a cardiac diet. Experiences no pain while at rest. Notes minor nausea since around noon as well as fatigue even though she slept well the previous night. Denies SOB, chest pa in, chills, urinary issues, or feeling feverish. She has a colostomy bag and notes no problems with stool consistency. Her goal on discharge is to go home with her spouse. O Cardiac: holosystolic murmur noted with possible AV block, no S3 or S4 heart sounds auscultated, pulses equal bilaterally in radial and dorsalis pedis arteries (2+), no apparent JVD Pulmonary: lungs clear to auscultation bilaterally A/P Status post right femoral neck fracture - fracture stabilized through percutaneous pinning. Patient to continue OT and PT. Monitor for signs of infection or anemia. Goal to be discharged home with spouse. May need a bone scan to assess further risk of fractures. Continue prescribed pain medications as needed. Hypertension - continue medical management with norvasc and hydralazine. Horacio nue cardiac diet. Chronic kidney disease Stage III - continue medical management, chemistry panel to assess kidney function. Avoid nephrotoxic drugs. Possible aortic stenosis - echocardiogram to assess for structural abnormalities Possible AV block - may need EKG to assess for possible arrhythmia DVT prophylaxis - apixaban Review of Systems General: Fatigue, Malaise Objective Exam Vital Signs Vital Signs Date Time Temp Pulse Resp B/P (MAP) Pulse Ox O2 Delivery O2 Flow Rate FiO2 05/23/22 20:59 Room Air 05/23/22 19:48 37.2 70 16 142/56 (84) 96 Capillary Refill : General Appearance: No Apparent Distress, WD/WN, Chronically ill HEENT: PERRL/EOMI, Normal ENT Inspection, Pharynx Normal Neck: Full Range of Motion, Normal Inspection, Non Tender, Supple, Carotid Bruit Respiratory: Chest Non Tender, Lungs Clear, Normal Breath Sounds, No Accessory Muscle Use, No Respiratory Distress Cardiovascular: Regular Rate, Rhythm, No Edema, No Gallop, No JVD, Normal Peripheral Pulses, Systolic Murmur Gastrointestinal: Normal Bowel Sounds, No Organomegaly, No Pulsatile Mass, Non Tender, Soft Back: Normal Inspection, No CVA Tenderness, No Vertebral Tenderness Extremity: Normal Capillary Refill, Normal Inspection, Normal Range of Motion (Except right leg), Non Tender, No Calf Tenderness, No Pedal Edema Neurologic/Psychiatric: Alert, Oriented x3, Normal Mood/Affect, edge stitcher II-XII Norm as Tested, Abnormal Gait, Motor Weakness (Right leg) Skin: Normal Color, Warm/Dry Lymphatic: No Adenopathy Results/Procedures Lab Laboratory Tests 05/23/22 05:20 Patient resulted labs reviewed. FIM Transfers Therapy Code Descriptions/Definitions Functional [place] Measure: 0=Not Assessed/NA 4=Minimal Assistance 1=Total Assistance 5=Supervision or Setup 2=Maximal Assistance 6=Modified [place] 3=Moderate Assistance 7=Complete IndependenceSCALE: Activities may be completed with or without assistive devices. 9-Mxgzuqzxpx-noalkdd completes the activity by him/herself with no assistance from a helper. 5-Set-up or Clean-up Assistance-helper sets up or cleans up; patient completes activity. [place] assists only prior to or following the activity. 4-Supervision or Touching Assistance-helper provides verbal cues and/or touching/steadying and/or contact guard assistance as patient completes activity. Assistance may be provided throughout the activity or intermittently. 3-Partial/Moderate Assistance-helper does LESS THAN HALF the effort. [place] lifts, holds or supports trunk or limbs, but provides less than half the effort. 2-Substantial/Maximal Assistance-helper does MORE THAN HALF the effort. [place] lifts or holds trunk or limbs and provides more than half the effort. 7-Cdkdkknyp-hqsqfr does ALL the effort. Patient does none of the effort to complete the activity. Or, the assistance of 2 or more helpers is required for the patient to complete the activity. If activity was not attempted, code reason: 7-Patient Refused. 9-Not Applicable-not attempted and the patient did not perform the activity before the current illness, exacerbation or injury. 10-Not Attempted due to Environmental Limitations-(lack of equipment, weather restraints, etc.). 88-Not Attempted due to Medical Conditions or Safety Concerns. Roll Left to Right (QC): 4 Sit to Lying (QC): 4 Sit to Stand (QC): 4 Chair/Bdh-bo-Hzxqd Xfer(QC): 4 Car Transfer (QC): 4 Gait Training Does the Patient Walk?: Yes Walk 10 feet (QC): 4 Walk 50 ft with 2 Turns(QC): 88 Walk 150 ft (QC): 88 Walking 10ft/uneven surface-QC: 4 Gait Assistive Device: FWW Wheelchair Training Does the Pt Use a Wheelchair?: Yes Distance: 100' Wheel 50 ft with 2 turns (QC): 3 Wheel 150 ft (QC): 88 Type of Wheelchair: Manual Stair Training #of Steps: 1 1 Step (curb) (QC): 4 4 Steps (QC): 88 12 Steps (QC): 88 Balance Picking up an Object (QC): 4 (CGA using petroleum geologist) ADL-Treatment Eating (QC): 6 Oral Hygiene (QC): 4 Shower/Bathe Self (QC): 4 Upper Body Dressing (QC): 5 Lower Body Dressing (QC): 4 On/Off Footwear (QC): 5 Toileting Hygiene (QC): 4 Toilet Transfer (QC): 4 Assessment/Plan Assessment and Plan Assess & Plan/Chief Complaint Assessment: Right femoral neck fracture status post uncomplicated repair Hypertension Cardiac murmur obtaining echocardiogram Chronic kidney disease Colostomy status Atrial fibrillation? Anemia of kidney disease Plan: Pain control Home meds Intensive rehab 05/23/22: Supportive care Pain control (1) Right femoral shaft fracture DEBBIE LILLY DO May 23, 2022 11:48
--- NOTE | 2022-05-23 12:04 | Physical Therapy Daily Note ---
PT Daily Note-Current Subjective Pt. agrees to Rx, denies pain. Agrees to try wearing shoe on unaffected limb to assist with TTWB on R Pain Location: No Pain Reported Section J - Health Conditions 1. Rarely or not at all 2. Occasionally 3. Frequently 4. Almost constantly 8. Unable to answer Pain Effect on Sleep: 1 (1) Pain Interference with Therapy: 1 Pain Interference w/Day-to-Day: 1 Mental Status Patient Orientation: Normal For Age Transfers SCALE: Activities may be completed with or without assistive devices. 6-Zjofshvswt-mxbjtxh completes the activity by him/herself with no assistance from a helper. 5-Set-up or Clean-up Assistance-helper sets up or cleans up; patient completes activity. [place] assists only prior to or following the activity. 4-Supervision or Touching Assistance-helper provides verbal cues and/or touching/steadying and/or contact guard assistance as patient completes activity. Assistance may be provided throughout the activity or intermittently. 3-Partial/Moderate Assistance-helper does LESS THAN HALF the effort. [place] lifts, holds or supports trunk or limbs, but provides less than half the effort. 2-Substantial/Maximal Assistance-helper does MORE THAN HALF the effort. [place] lifts or holds trunk or limbs and provides more than half the effort. 1-Sbyuwvmjp-gzxmgt does ALL the effort. Patient does none of the effort to complete the activity. Or, the assistance of 2 or more helpers is required for the patient to complete the activity. If activity was not attempted, code reason: 7-Patient Refused. 9-Not Applicable-not attempted and the patient did not perform the activity before the current illness, exacerbation or injury. 10-Not Attempted due to Environmental Limitations-(lack of equipment, weather restraints, etc.). 88-Not Attempted due to Medical Conditions or Safety Concerns. Roll Left & Right (QC): 6 Sit to Lying (QC): 6 Lying to Sitting/Side of Bed(Q: 6 Sit to Stand (QC): 6 Chair/Pya-jt-Ebjqw Xfer(QC): 6 Toilet Transfer (QC): 6 Weight Bearing Right Lower Extremity: Right Touch Toe Bearing Left Lower Extremity: Left Full Weight Bearing Gait Training Does the Patient Walk?: Yes Walk 10 feet (QC): 4 Walk 50 ft with 2 Turns(QC): 4 Gait Persons Needed: 1 Gait Assistive Device: FWW [id number], [id number], 50ftx2 TTWBing better maintained with shoe on L foot, pts gait pattern very sporadic with unequal step length etc. short then longer , wider ARTURO S then narrow, but no LOB, CGA FWW Exercises Supine Ex: Ankle pumps, Quad Set, Rolling, Glut sets, Heel Slides, Short Arc Quads, Scooting, Straight leg raise, Hip abd/add Supine Reps: 20 Seated Therapy Exercises: Ankle pumps, Sit to stand, Long arc quads, Hip flexion, Hip abd/add Seated Reps: 15 NuStep Minutes: 8 NuStep Workload: 1 Assessment Current Status: Good Progress PT Short Term Goals Short Term Goals Time Frame: May 22, 2022 Sit to stand: 4 (SBA) Chair/urx-pk-urjtz transfer: 4 (SBA) Walk 10 feet: 4 (SBA) Walk 50 feet with two turns: 4 (SBA) Walk 150 feet: 4 (SBA) PT Intermediate Goals Intermediate Goals PT Drum Maker Goals Time Frame: Jun 12, 2022 Roll Left & Right (QC): 6 Sit to Lying (QC): 6 Lying-Sitting on Side/Bed(QC): 6 Sit to Stand (QC): 6 Chair/Shm-hm-Pvewp Xfer(QC): 6 Toilet Transfer (QC): 6 Car Transfer (QC): 6 Does the Patient Walk: Yes Walk 10 feet (QC): 6 Walk 50ft with 2 Turns (QC): 6 Walk 150 ft (QC): 6 Walking 10ft on Uneven Surface: 6 1 Step (curb) (QC): 6 4 Steps (QC): 6 12 Steps (QC): 88 Picking up an Object (QC): 6 Wheel 50 feet with 2 turns (QC: 6 Type: Manual Wheel 150 feet: 6 Type: Manual PT Plan Treatment/Plan Treatment Plan: Continue Plan of Care Treatment Plan: Bed Mobility, Education, Functional Activity Kaity, Functional Strength, Group Therapy, Gait, Safety, Therapeutic Exercise, Transfers Treatment Duration: Jun 12, 2022 Frequency: At least 5 of 7 days/Wk (IRF) Estimated Hrs Per Day: 1.5 hours per day Patient and/or Family Agrees t: Yes Safety Risks/Education Patient Education: Gait Training, Transfer Techniques, Reviewed Precautions, Correct Positioning, Disease Process, Safety Issues Teaching Recipient: Patient Teaching Methods: Demonstration, Discussion Response to Teaching: Verbalize Understanding, Return Demonstration, Reinforcement Needed Time Time In: 1100 Time Out: 1200 DATE: May 23, 2022 Total Billed Treatment Time: 60 Total Billed Treatment 1,EX35m,GT25m BELKYS VALENCIA INSPECTOR OPTICAL INSTRUMENT May 23, 2022 12:04
--- NOTE | 2022-05-23 14:54 | Progress Note ---
KORINA COOK 05/23/22 1454: Progress Note S: Ms. Connell is an 82 year old female who presents to ARU on 05/22, transferring from [place]. Patient sustained right femoral neck fracture on 05/17 s/p percutaneous pinning. The patient's primary care doctor is Dr. Mejia in [place]. Patient is sitting up in bed at time of encounter and states she is doing well. Patient denies current pain, is tolerating PO food and drink, and is voiding without difficulty. Patient has a colostomy bag and states she emptied it yesterday. Patient states she is ambulating well with assistance and is tolerating therapy. O: Vital signs stable: T 36.7, HR 78, RR 16, BP 145/67, SpO2 92% RA Exam: -Cardiovascular: HRRR -Pulmonary: LCTAB Labs: -05/23: BUN 22, Cr 1.32, Total Protein 6.3 A/P 1. Right femoral neck fracture s/p - percutaneous pinning. Patient to continue OT and PT. Continue prescribed PO pain medications as needed. 2. Hypertension - continue medical management with norvasc and hydralazine. Continue cardiac diet. 3. Chronic kidney disease Stage III, monitor Cr 4. DVT prophylaxis - apixaban 5. Low total protein; likely due to protein nutrition deficiency or factor of CKD. Consider supplementing with protein rich diet DANIA LILLY DO 05/24/22 0525: Supervisory-Addendum Brief Verification & Attestation Participated in pt care: history, MDM, physical Personally performed: exam, history, MDM, supervision of care Care discussed with: Medical Student Procedures: n/a Results interpretation: Verified all documentation Verification and Attestation of Medical Student E/M Service A medical student performed and documented this service in my presence. I reviewed and verified all information documented by the medical student and made modifications to such information, when appropriate. I personally performed the physical exam and medical decision making. Dania Lilly May 24, 2022,05:25 KORINA COOK May 23, 2022 14:54 DANIA LILLY DO May 24, 2022 05:25
--- NOTE | 2022-05-23 15:19 | Physical Therapy Daily Note ---
PT Daily Note-Current Subjective agrees to Rx, wants to nap after Rx. No pain c/o Pain Location: No Pain Reported Section J - Health Conditions 1. Rarely or not at all 2. Occasionally 3. Frequently 4. Almost constantly 8. Unable to answer Pain Effect on Sleep: 1 (1) Pain Interference with Therapy: 1 Pain Interference w/Day-to-Day: 1 Mental Status Patient Orientation: Normal For Age Transfers SCALE: Activities may be completed with or without assistive devices. 3-Iqqyczzoux-qabwdtn completes the activity by him/herself with no assistance from a helper. 5-Set-up or Clean-up Assistance-helper sets up or cleans up; patient completes activity. [place] assists only prior to or following the activity. 4-Supervision or Touching Assistance-helper provides verbal cues and/or touching/steadying and/or contact guard assistance as patient completes activity. Assistance may be provided throughout the activity or intermittently. 3-Partial/Moderate Assistance-helper does LESS THAN HALF the effort. [place] lifts, holds or supports trunk or limbs, but provides less than half the effort. 2-Substantial/Maximal Assistance-helper does MORE THAN HALF the effort. [place] lifts or holds trunk or limbs and provides more than half the effort. 6-Ricbzhxur-ciiwac does ALL the effort. Patient does none of the effort to complete the activity. Or, the assistance of 2 or more helpers is required for the patient to complete the activity. If activity was not attempted, code reason: 7-Patient Refused. 9-Not Applicable-not attempted and the patient did not perform the activity before the current illness, exacerbation or injury. 10-Not Attempted due to Environmental Limitations-(lack of equipment, weather restraints, etc.). 88-Not Attempted due to Medical Conditions or Safety Concerns. all TRFs chair and bed and toilet SBA to Mod I Weight Bearing Right Lower Extremity: Right Touch Toe Bearing Left Lower Extremity: Left Full Weight Bearing Gait Training Does the Patient Walk?: Yes Gait Assistive Device: FWW 50 ft FWW TTWB CGA Exercises Supine Ex: Ankle pumps, Quad Set, Glut sets, Heel Slides, Hip abd/add Supine Reps: 12 Assessment Current Status: Good Progress PT Short Term Goals Short Term Goals Time Frame: May 22, 2022 Sit to stand: 4 (SBA) Chair/syx-ot-wyfxz transfer: 4 (SBA) Walk 10 feet: 4 (SBA) Walk 50 feet with two turns: 4 (SBA) Walk 150 feet: 4 (SBA) PT Snaker Driving Horses Goals Snaker Driving Horses Goals PT Snaker Driving Horses Goals Time Frame: Jun 12, 2022 Roll Left & Right (QC): 6 Sit to Lying (QC): 6 Lying-Sitting on Side/Bed(QC): 6 Sit to Stand (QC): 6 Chair/Css-zd-Gxsne Xfer(QC): 6 Toilet Transfer (QC): 6 Car Transfer (QC): 6 Does the Patient Walk: Yes Walk 10 feet (QC): 6 Walk 50ft with 2 Turns (QC): 6 Walk 150 ft (QC): 6 Walking 10ft on Uneven Surface: 6 1 Step (curb) (QC): 6 4 Steps (QC): 6 12 Steps (QC): 88 Picking up an Object (QC): 6 Wheel 50 feet with 2 turns (QC: 6 Type: Manual Wheel 150 feet: 6 Type: Manual PT Plan Treatment/Plan Treatment Plan: Continue Plan of Care Treatment Plan: Bed Mobility, Education, Functional Activity Kaity, Functional Strength, Group Therapy, Gait, Safety, Therapeutic Exercise, Transfers Treatment Duration: Jun 12, 2022 Frequency: At least 5 of 7 days/Wk (IRF) Estimated Hrs Per Day: 1.5 hours per day Patient and/or Family Agrees t: Yes Safety Risks/Education Patient Education: Gait Training, Transfer Techniques Time Time In: 1400 Time Out: 1415 DATE: May 23, 2022 Total Billed Treatment Time: 15 Total Billed Treatment 1,EX15m BELKYS VALENCIA LOOKBACK COORDINATOR May 23, 2022 15:19
[2022-05-23] MEDS: MECOBALAMIN 1000 MCG SL SCH (18:21)
[2022-05-23 19:48] VITALS: BP 142/56
--- NOTE | 2022-05-24 05:35 | PM&R Progress Note ---
Subjective HPI/CC On Admission Date Seen by Provider: May 24, 2022 Time Seen by Provider: 12:15 Subjective/Events-last exam 05/24/2022: Doing really well No pain is reported No falls Checked meds and labs 05/23/22: Patient doing well Pain is controlled without pain pills Labs reviewed Echo ordered No other concerns Chief complaint: Right femoral neck fracture HPI: This is an 82-year-old female clinic patient of Dr. Black in [place] who presents following a successful right femoral neck fracture repair at [facility]. She has a past medical history of chronic kidney disease and hypertension. Her prior level of function was independent without the use of assistive device. She lives at home with her spouse. She does have a colostomy. S Patient is an 82 year old woman admitted to inpatient rehab following a fracture of her right femoral neck after falling on concrete last Friday, 05/17. Her fracture was treated with percutaneous pinning and she is up and mobilizing with assistance. Her primary care doctor is Dr. Mejia in [place]. She has a past medical history of CKD stage III and hypertension. 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 No previous history of cardiac or pulmonary disease. Current medications include tramadol, hydrocodone, L-lysine, norvasc, hydralazine, apixaban, B12, cholecalciferol, and flintstones vitamins with iron. She is on a cardiac diet. Experiences no pain while at rest. Notes minor nausea since around noon as well as fatigue even though she slept well the previous night. Denies SOB, chest pain, chills, urinary issues, or feeling feverish. She has a colostomy bag and notes no problems with stool consistency. Her goal on discharge is to go home with her spouse. O Cardiac: holosystolic murmur noted with possible AV block, no S3 or S4 heart sounds auscultated, pulses equal bilaterally in radial and dorsalis pedis arteries (2+), no apparent JVD Pulmonary: lungs clear to auscultation bilaterally A/P Status post right femoral neck fracture - fracture stabilized through percutaneous pinning. Patient to continue OT and PT. Monitor for signs of infection or anemia. Goal to be discharged home with spouse. May need a bone scan to assess further risk of fractures. Continue prescribed pain medications as needed. Hypertension - continue medical management with norvasc and hydralazine. Continue cardiac diet. Chronic kidney disease Stage III - continue medical management, chemistry panel to assess kidney function. Avoid nephrotoxic drugs. Possible aortic stenosis - echocardiogram to assess for structural abnormalities Possible AV block - may need EKG to assess for possible arrhythmia DVT prophylaxis - apixaban Review of Systems General: Fatigue, Malaise Musculoskeletal: leg pain Objective Exam Vital Signs Vital Signs Date Time Temp Pulse Resp B/P (MAP) Pulse Ox O2 Delivery O2 Flow Rate FiO2 05/24/22 21:30 96 Room Air 05/24/22 19:54 36.4 69 20 153/65 (94) Capillary Refill : General Appearance: No Apparent Distress, WD/WN, Chronically ill HEENT: PERRL/EOMI, Normal ENT Inspection, Pharynx Normal Neck: Full Range of Motion, Normal Inspection, Non Tender, Supple, Carotid Bruit Respiratory: Chest Non Tender, Lungs Clear, Normal Breath Sounds, No Accessory Muscle Use, No Respiratory Distress Cardiovascular: Regular Rate, Rhythm, No Edema, No Gallop, No JVD, Normal Peripheral Pulses, Systolic Murmur Gastrointestinal: Normal Bowel Sounds, No Organomegaly, No Pulsatile Mass, Non Tender, Soft Back: Normal Inspection, No CVA Tenderness, No Vertebral Tenderness Extremity: Normal Capillary Refill, Normal Inspection, Normal Range of Motion (Except right leg), Non Tender, No Calf Tenderness, No Pedal Edema Neurologic/Psychiatric: Alert, Oriented x3, Normal Mood/Affect, child welfare assistant II-XII Norm as Tested, Abnormal Gait, Motor Weakness (Right leg) Skin: Normal Color, Warm/Dry Lymphatic: No Adenopathy Results/Procedures Lab Patient resulted labs reviewed. FIM Transfers Therapy Code Descriptions/Definitions Functional [place] Measure: 0=Not Assessed/NA 4=Minimal Assistance 1=Total Assistance 5=Supervision or Setup 2=Maximal Assistance 6=Modified [place] 3=Moderate Assistance 7=Complete IndependenceSCALE: Activities may be completed with or without assistive devices. 7-Wonppzmdgg-qktbswf completes the activity by him/herself with no assistance from a helper. 5-Set-up or Clean-up Assistance-helper sets up or cleans up; patient completes activity. [place] assists only prior to or following the activity. 4-Supervision or Touching Assistance-helper provides verbal cues and/or touching/steadying and/or contact guard assistance as patient completes activity. Assistance may be provided throughout the activity or intermittently. 3-Partial/Moderate Assistance-helper does LESS THAN HALF the effort. [place] lifts, holds or supports trunk or limbs, but provides less than half the effort. 2-Substantial/Maximal Assistance-helper does MORE THAN HALF the effort. [place] lifts or holds trunk or limbs and provides more than half the effort. 6-Xfmlrjvtj-jgvsfo does ALL the effort. Patient does none of the effort to complete the activity. Or, the assistance of 2 or more helpers is required for the patient to complete the activity. If activity was not attempted, code reason: 7-Patient Refused. 9-Not Applicable-not attempted and the patient did not perform the activity before the current illness, exacerbation or injury. 10-Not Attempted due to Environmental Limitations-(lack of equipment, weather restraints, etc.). 88-Not Attempted due to Medical Conditions or Safety Concerns. Roll Left to Right (QC): 6 Sit to Lying (QC): 6 Sit to Stand (QC): 6 Chair/Ebq-uf-Qzvtj Xfer(QC): 6 Car Transfer (QC): 4 Gait Training Does the Patient Walk?: Yes Walk 10 feet (QC): 4 Walk 50 ft with 2 Turns(QC): 4 Walk 150 ft (QC): 88 Walking 10ft/uneven surface-QC: 4 Gait Persons Needed: 1 Gait Assistive Device: FWW Wheelchair Training Does the Pt Use a Wheelchair?: Yes Distance: 100' Wheel 50 ft with 2 turns (QC): 3 Wheel 150 ft (QC): 88 Type of Wheelchair: Manual Stair Training #of Steps: 1 1 Step (curb) (QC): 4 4 Steps (QC): 88 12 Steps (QC): 88 Balance Picking up an Object (QC): 4 (CGA using drug department worker) ADL-Treatment Eating (QC): 6 Oral Hygiene (QC): 4 Shower/Bathe Self (QC): 4 Upper Body Dressing (QC): 5 Lower Body Dressing (QC): 4 On/Off Footwear (QC): 5 Toileting Hygiene (QC): 4 Toilet Transfer (QC): 4 Assessment/Plan Assessment and Plan Assess & Plan/Chief Complaint Assessment: Right femoral neck fracture status post uncomplicated repair Hypertension Cardiac murmur obtaining echocardiogram Chronic kidney disease Colostomy status Atrial fibrillation? Anemia of kidney disease Plan: Pain control Home meds Intensive rehab 05/23/22: Supportive care Pain control 05/24/2022: Continue aggressive therapy Supportive care (1) Right femoral shaft fracture DEBBIE LILLY DO May 24, 2022 05:35
[2022-05-24] MEDS: MULTIVITAMINS LIQUID 15 ML UDC PO SCH (06:01)
[2022-05-24 07:17] VITALS: BP 142/66
[2022-05-24] MEDS: SENNA W/DOCUSATE (SENOKOT S) TABLET PO SCH ×2 (08:56→21:49)
[2022-05-24] MEDS: polyethylene glycoL POWDER 17 GM (MIRALAX) PACK PO SCH ×2 (08:56→21:48)
[2022-05-24] MEDS: DOCUSATE SODIUM 100 MG (COLACE) CAP PO SCH ×2 (08:56→21:49)
[2022-05-24] MEDS: VITAMIN D3 25 MCG (1,000 UNITS) TABLET PO SCH (08:56)
[2022-05-24] MEDS: APIXABAN 2.5 MG (ELIQUIS) TABLET PO SCH ×2 (08:57→21:49)
[2022-05-24] MEDS: amLODIPine 10 MG (NORVASC) TAB PO SCH (08:57)
[2022-05-24] MEDS: hydrALAZINE (APRESOLINE) 25 MG TAB PO SCH ×2 (08:57→21:49)
[2022-05-24] MEDS: MECOBALAMIN 1000 MCG SL SCH (09:00)
--- NOTE | 2022-05-24 09:47 | Occupational Ther Daily Note ---
OT Current Status-Daily Note Subjective Pt sitting up in recliner upon arrival. She reported her bringing in clothes and toiletries in today. Appearance Pt left sitting in recliner with all needs within reach. Mental Status/Objective Patient Orientation: Person, Place, Time, Situation ADL-Treatment Therapy Code Descriptions/Definitions Functional [place] Measure: 0=Not Assessed/NA 4=Minimal Assistance 1=Total Assistance 5=Supervision or Setup 2=Maximal Assistance 6=Modified [place] 3=Moderate Assistance 7=Complete IndependenceSCALE: Activities may be completed with or without assistive devices. 7-Wnetvrpwyh-opcsynk completes the activity by him/herself with no assistance from a helper. 5-Set-up or Clean-up Assistance-helper sets up or cleans up; patient completes activity. [place] assists only prior to or following the activity. 4-Supervision or Touching Assistance-helper provides verbal cues and/or touching/steadying and/or contact guard assistance as patient completes activity. Assistance may be provided throughout the activity or intermittently. 3-Partial/Moderate Assistance-helper does LESS THAN HALF the effort. [place] lifts, holds or supports trunk or limbs, but provides less than half the effort. 2-Substantial/Maximal Assistance-helper does MORE THAN HALF the effort. [place] lifts or holds trunk or limbs and provides more than half the effort. 7-Lvzuuvvyo-flrfej does ALL the effort. Patient does none of the effort to complete the activity. Or, the assistance of 2 or more helpers is required for the patient to complete the activity. If activity was not attempted, code reason: 7-Patient Refused. 9-Not Applicable-not attempted and the patient did not perform the activity before the current illness, exacerbation or injury. 10-Not Attempted due to Environmental Limitations-(lack of equipment, weather restraints, etc.). 88-Not Attempted due to Medical Conditions or Safety Concerns. Oral Hygiene (QC): 4 (SBA for safety due to prolonged standing) Upper Body Dressing (QC): 6 Lower Body Dressing (QC): 6 Toileting Hygiene (QC): 6 Toilet Transfer (QC): 6 Sit<>stand: SBA. Pt still requires cues for TTWB. RW was adjusted to better fit her height and to assist with ambulation and TTWB precautions. Pt toileted and completed toileting hygiene with independence. She donned all clothing with independence sitting on the toilet. Pt stood at sink to perform grooming tasks with independence. No concerns with balance, coordination or steadiness in today's session. Other Treatment Due to pts minimal follow through with TTWB, therapist taped crackers onto bottom of R foot to ensure pt is following through with weight bearing precautions. Pt able to complete 4 bouts of ambulation, but was only able to complete ~5-6 ft at a time before needing to sit. Pt reported that it was much harder to walk now, and that she doesn't think she wasn't following the WB precautions before. Education about the importance of following WB precautions given. Pt required increased time for rest breaks. With each break, pt explained how hard it has been on her going through this while in the process of cleaning out her son's house. Emotional support was given to pt during this time. She stated that she feels overwhelmed and stressed about everything that she needs to do/should have been doing this week. Education OT Patient Education: Correct positioning, Energy conservation, Modified ADL techniques, Progress toward Goal/Update tx plan, Purpose of tx/functional activities, Reviewed precautions, Rehab process, Safety issues, Transfer emma hniques Teaching Recipient: Patient Teaching Methods: Demonstration, Discussion Response to Teaching: Verbalize Understanding, Return Demonstration OT Short Term Goals Short Term Goals Time Frame: May 29, 2022 Eatin Oral hygiene: 5 Toileting hygiene: 4 Shower/bathe self: 4 Upper body dressin Lower body dressin Putting on/taking off footwear: 5 OT Fci Goals Fci Goals Time Frame: Jun 05, 2022 Acute change in mental status: 0 Inattention: 0 Disorganized thinkin Altered level of consciousness: 0 Eating (QC): 6 Oral Hygiene (QC): 6 Toileting Hygiene (QC): 6 Shower/Bathe Self (QC): 5 Upper Body Dressing (QC): 6 Lower Body Dressing (QC): 6 On/Off Footwear (QC): 6 Additional Goals: 1-Demonstrate ADL Tasks, 2-Verbalize Understanding, 3- ImproveStrength/Kaity 1=Demonstrate adherence to instructed precautions during ADL tasks. 2=Patient will verbalize/demonstrate understanding of assistive devices/modifications for ADL. 3=Patient will improve strength/tolerance for activity to enable patient to perform ADL's. OT Education/Plan Problem List/Assessment Assessment: Decreased Activ Tolerance, Decreased Safety Aware, Decreased UE Strength, Impaired Coordination, Impaired Funct Balance, Impaired I ADL's, Impaired Self-Care Skills Discharge Recommendations Plan/Recommendations: Continue POC Equpiment Recommendations-D/C: Bath Chair (pt stated a bath chair would be a better fit in her small bathroom) Treatment Plan/Plan of Care Treatment,Training & Education: Yes Patient would benefit from OT for education, treatment and training to promote independence in ADL's, mobility, safety and/or upper extremity function for ADL's. Plan of Care: ADL Retraining, Functional Mobility, Group Exercise/Act as Ind, UE Funct Exercise/Act Treatment Duration: Jun 05, 2022 Frequency: At least 5 of 7 days/Wk (IRF) Estimated Hrs Per Day: 1.5 hours per day (75-90 min/day ) Agreement: Yes Rehab Potential: Good Time Start Time: 08:45 Stop Time: 09:45 DATE: May 24, 2022 Total Time Billed (hr/min): 60 Billed Treatment Time 1 visit ADL x3 (40 min) FA (20 min) Sia Dobbins OT May 24, 2022 09:47
--- NOTE | 2022-05-24 11:19 | Physical Therapy Daily Note ---
PT Daily Note-Current Subjective Pt. agrees to Rx, states she prefers to wear a shoe on left foot to assist with TTWB R and also provides support to left foot. No c/o pain in hip today. Pain Location: No Pain Reported Section J - Health Conditions 1. Rarely or not at all 2. Occasionally 3. Frequently 4. Almost constantly 8. Unable to answer Pain Effect on Sleep: 1 (1) Pain Interference with Therapy: 1 Pain Interference w/Day-to-Day: 1 Mental Status Patient Orientation: Normal For Age Transfers SCALE: Activities may be completed with or without assistive devices. 3-Qajjwvxybd-pckxmjy completes the activity by him/herself with no assistance from a helper. 5-Set-up or Clean-up Assistance-helper sets up or cleans up; patient completes activity. [place] assists only prior to or following the activity. 4-Supervision or Touching Assistance-helper provides verbal cues and/or touching/steadying and/or contact guard assistance as patient completes activity. Assistance may be provided throughout the activity or intermittently. 3-Partial/Moderate Assistance-helper does LESS THAN HALF the effort. [place] lifts, holds or supports trunk or limbs, but provides less than half the effort. 2-Substantial/Maximal Assistance-helper does MORE THAN HALF the effort. [place] lifts or holds trunk or limbs and provides more than half the effort. 8-Ipyxrricq-ikqrku does ALL the effort. Patient does none of the effort to complete the activity. Or, the assistance of 2 or more helpers is required for the patient to complete the activity. If activity was not attempted, code reason: 7-Patient Refused. 9-Not Applicable-not attempted and the patient did not perform the activity before the current illness, exacerbation or injury. 10-Not Attempted due to Environmental Limitations-(lack of equipment, weather restraints, etc.). 88-Not Attempted due to Medical Conditions or Safety Concerns. Roll Left & Right (QC): 6 Sit to Lying (QC): 6 Lying to Sitting/Side of Bed(Q: 6 Sit to Stand (QC): 6 Chair/Tut-bj-Kfvsc Xfer(QC): 6 Toilet Transfer (QC): 6 Car Transfer (QC): 6 Weight Bearing Right Lower Extremity: Right Touch Toe Bearing Left Lower Extremity: Left Full Weight Bearing Gait Training Does the Patient Walk?: Yes Walk 10 feet (QC): 4 Walk 50 ft with 2 Turns(QC): 4 Walk 150 ft (QC): 4 Gait Persons Needed: 1 Gait Assistive Device: FWW Pt. ambulated [id number], 150x1, TTWBing right, pt. still has some mild difficulties with making her gait more fluid and taking more equal step length but with the use of FWW pts gait is safe and she demonstrates good use, safe turns and manages well with CGA to SBA. This pt. has a mobility limitation in that she cannot fully wt bear on right which significantly impairs her ability to participate in ADLs in normal time frame and impedes her balance. Pt. demonstrates ability to safely use a FWW and bogdan of it sufficiently resolves her balance and gait limitations Exercises Supine Ex: Ankle pumps, Quad Set, Glut sets, Lower trunk rotation, Heel Slides, Short Arc Quads, Scooting, Straight leg raise, Hip abd/add Supine Reps: 20 Seated Therapy Exercises: Ankle pumps, Sit to stand, Long arc quads, Hip flexion, Hip abd/add Seated Reps: 15 NuStep Minutes: 8 NuStep Workload: 1 Treatments TRFs, gait, LE ex Assessment Current Status: Good Progress PT Short Term Goals Short Term Goals Time Frame: May 22, 2022 Sit to stand: 4 (SBA) Chair/bed-fd-kapel transfer: 4 (SBA) Walk 10 feet: 4 (SBA) Walk 50 feet with two turns: 4 (SBA) Walk 150 feet: 4 (SBA) PT Shelter Goals Human Factors Advisor Lead Goals PT Shelter Goals Time Frame: Jun 12, 2022 Roll Left & Right (QC): 6 Sit to Lying (QC): 6 Lying-Sitting on Side/Bed(QC): 6 Sit to Stand (QC): 6 Chair/Aps-nm-Jxffu Xfer(QC): 6 Toilet Transfer (QC): 6 Car Transfer (QC): 6 Does the Patient Walk: Yes Walk 10 feet (QC): 6 Walk 50ft with 2 Turns (QC): 6 Walk 150 ft (QC): 6 Walking 10ft on Uneven Surface: 6 1 Step (curb) (QC): 6 4 Steps (QC): 6 12 Steps (QC): 88 Picking up an Object (QC): 6 Wheel 50 feet with 2 turns (QC: 6 Type: Manual Wheel 150 feet: 6 Type: Manual PT Plan Treatment/Plan Treatment Plan: Continue Plan of Care Treatment Plan: Bed Mobility, Education, Functional Activity Kaity, Functional Strength, Group Therapy, Gait, Safety, Therapeutic Exercise, Transfers Treatment Duration: Jun 12, 2022 Frequency: At least 5 of 7 days/Wk (IRF) Estimated Hrs Per Day: 1.5 hours per day Patient and/or Family Agrees t: Yes Safety Risks/Education Patient Education: Gait Training, Transfer Techniques, Correct Positioning, Disease Process, Safety Issues Teaching Recipient: Patient Teaching Methods: Demonstration, Discussion Response to Teaching: Verbalize Understanding, Return Demonstration, Reinforcement Needed Time Time In: 1010 Time Out: 1110 DATE: May 24, 2022 Total Billed Treatment Time: 60 Total Billed Treatment 1,GT30m,EX30m BELKYS VALENCIA PORCELAIN FINISHER May 24, 2022 11:19
--- NOTE | 2022-05-24 14:37 | Therapy Group Daily Note ---
Therapy Daily Group Note Patient Education Topic Home Safety, Exercises, Other List Below (ARU description/PLB) Exercises LE Seated Exercise, UE Exercise Session Ratio (pt:therapist): 4:1 Goal of Session: Education on ARU Expectations, Home Safety Strategies, UE/LE Strengthing, Safety with Transfers, Use of Adaptive Equipment Goal Met for this Session: Yes Pt Benefit of Group: Contributions to Others, F/U Use of Strategies @Home, Increased Functional Safety, Increased Functional Strength, Improved Cognition, Recognition of Peers, Socialization Other/Notes Pt ambulated using FWW to [facility] area for OT/PT group. Group consisted of introductions(name, place living, Thanksgiving food), socialization, B UE/LE seated exercises, ARU description and educational topics (home safety, PLB techniques). Pt introduced self appropriately and actively listened to peers. Pt verbalized understanding of educational topics by giving own strategies and experience. Pt able to tolerate seated exercises. After session, pt sitting in recliner with call light/phone in reach. All needs met in room. Start Time: 13:00 Stop Time: 14:15 Total Billed Treatment Time: 75 Total Billed Treatment 1-GRP LOLY LONGORIA May 24, 2022 14:37
--- NOTE | 2022-05-24 15:43 | Progress Note ---
KORINA COOK 05/24/22 1543: Progress Note S: Ms. Connell is an 82 year old female who presents to ARU on 05/22, transferring from [place]. Patient sustained right femoral neck fracture on 05/17 s/p percutaneous pinning. The patient's primary care doctor is Dr. Mejia in [place]. Patient is resting in recliner at time of encounter and states she is doing well today. She denies any pain. Patient states she is tolerating therapy well. Patient reports she is tolerating PO food and drink and emptied her colostomy bag yesterday evening. O: Vital signs stable: T 36.8, HR 70, RR 18, BP 142/66, SpO2 95% RA Exam: -Cardiovascular: HRRR -Pulmonary: LCTAB Labs: -05/23: BUN 22, Cr 1.32, Total Protein 6.3 -Imaging: echo has been ordered A/P 1. Right femoral neck fracture s/p - percutaneous pinning. Patient to continue OT and PT. Continue prescribed PO pain medications as needed. 2. Hypertension - continue medical management with norvasc and hydralazine. Continue cardiac diet. 3. Chronic kidney disease Stage III, monitor Cr 4. DVT prophylaxis - apixaban 5. Low total protein; likely due to protein nutrition deficiency or factor of CKD. Consider supplementing with protein rich diet DANIA LILLY DO 05/25/22 0542: Supervisory-Addendum Brief Verification & Attestation Participated in pt care: history, MDM, physical Personally performed: exam, history, MDM, supervision of care Care discussed with: Medical Student Procedures: n/a Results interpretation: Verified all documentation Verification and Attestation of Medical Student E/M Service A medical student performed and documented this service in my presence. I reviewed and verified all information documented by the medical student and made modifications to such information, when appropriate. I personally performed the physical exam and medical decision making. Dania Lilly May 25, 2022,05:42 KORINA COOK May 24, 2022 15:43 DANIA LILLY DO May 25, 2022 05:42
[2022-05-24 19:54] VITALS: BP 153/65
[2022-05-24] MEDS: HYDROcodone/APAP 5 MG/325 MG (LORTAB) TAB PO PRN (21:49)
--- NOTE | 2022-05-25 06:38 | Individualized Plan of Care ---
Individualized Plan of Care Rehab Nursing IPOC Order Admission Date May 22, 2022 at 15:27 Current Orders Orders Admission Order(Inpt,Obs,Sdc) (05/22/22 14:04) Vital Signs: Per Unit Policy ( ,00 (05/22/22 14:04) Homero Granda (05/22/22 14:04) Sequential Compression Device (05/22/22 14:04) Headhunter-Inpt Rehab Con (05/22/22 14:04) Rehab Nursing Orders-Ipoc (05/22/22 14:04) Physical Therapy Rehab Orders (05/22/22 14:04) Occupational Therapy Rehab Ord (05/22/22 14:04) Speech Therapy Rehab Orders (05/22/22 14:04) Cbc With Automated Diff (05/23/22 06:00) Comprehensive Metabolic Panel (05/23/22 06:00) Precautions (Aru) (05/22/22 14:04) Weekly Weight WEEK (05/22/22 14:04) Rehab-Intensity Of Therapy (05/22/22 14:04) Initiate Admission Nursing Pro .admission (05/22/22 14:04) Alprazolam Tablet (Xanax Tablet) (05/22/22 14:15) Calcium Carbonate Chew Tablet (Antacid C (05/22/22 14:15) Diphenhydramine Tablet (Benadryl Tablet) (05/22/22 14:15) Docusate Sodium Capsule (Colace Capsule) (05/22/22 21:00) Docusate Sodium Capsule (Colace Capsule) (05/22/22 14:15) Bisacodyl Suppository (Dulcolax Supposit (05/22/22 14:15) Lactulose Oral Solution (Enulose Oral So (05/22/22 14:15) Na Phos/Na Biphos Enema (Fleet Enema Kurt (05/22/22 14:15) Guaifenesin/Codeine Syrup (Robitussin Ac (05/22/22 14:15) Loperamide Tablet (Imodium Tablet) (05/22/22 14:15) Melatonin Tablet (Melatonin Tablet) (05/22/22 14:15) Polyethylene Glycol Powder Pkt (Miralax (05/22/22 21:00) Ondansetron Oral Dissolve Tab (Zofran (05/22/22 14:15) Senna S Tablet (Senokot S Tablet) (05/22/22 21:00) Acetaminophen Tablet/Caplet (Tylenol T (05/22/22 14:15) Code/Resuscitation (05/22/22 14:04) Initiate Admission Nursing Pro .admission (05/22/22 14:04) General/Regular (05/22/22 Lunch) Admission Arrival Bed Request (05/22/22 15:26) Isolation Central Supply Req (05/22/22 16:22) Amlodipine Tablet (Norvasc Tablet) (05/23/22 09:00) Apixaban Tablet (Eliquis Tablet) (05/22/22 21:00) Hydrocodone/Apap 5/325 Tablet (Lortab 5 (05/22/22 17:30) Tramadol Tablet (Ultram Tablet) (05/22/22 17:30) (Nf) Aloe Vera (05/23/22 09:00) (Nf) Cholecalciferol (Vitamin D3) (Vitam (05/23/22 09:00) (Nf) Hydralazine Hcl (05/22/22 21:00) (Nf) Lysine Hcl (L-Lysine) (05/23/22 09:00) (Nf) Mecobalamin (B-12) (05/23/22 09:00) (Nf) Pediatric Multivit No.203/Iron (Fli (05/23/22 09:00) Patient May Use Own Meds, All (Patient M (05/22/22 17:30) Echo W Doppler/Color Flow (05/23/22 08:00) Ekg Tracing (05/23/22 08:00) Cholecalciferol Capsule/Tablet (Vitamin (05/23/22 09:00) Hydralazine Tablet (Apresoline Tablet) (05/22/22 21:00) Multivitamins Liquid (Geritol Liquid) (05/23/22 07:00) Patient Visit (05/22/22 ) Pt Eval Moderate Complexity (05/22/22 ) Functional Activities, Ea 15 (05/22/22 ) Patient Visit (05/23/22 ) Speech Sound Lang Comp (05/23/22 ) Treat. Speech/Lang/Voice (05/23/22 ) Patient Visit (05/23/22 ) Gait Training, Ea 15 Min (05/23/22 ) Exercise Therap, Ea 15 Min (05/23/22 ) Patient Visit (05/24/22 ) Gait Training, Ea 15 Min (05/24/22 ) Exercise Therap, Ea 15 Min (05/24/22 ) Rehab Nursing Orders: Ongoing Assess. of Cognitive Status, Ongoing Assess. of Function Status, Bladder Management, Bladder Scan, Bladder Training, Bowel Management, Bowel Training, Disease Management & Educaiton, DVT Prophylaxis, Fall Prevention, Fluid/Electrolyte/Nutrition Mgmt, Infection Prevention, Medication Management & Education, Management of Risks & Complications, Management of Skin Intergrity, Nutrition Management, Pain Management, Patient/Family Support, Safety Management, Wound Management Intensity of Therapy to be met Patient to be seen: Min.3h per day/5 of 7d PT IPOC Problem List: Activity Tolerance, Functional Strength, Safety, Balance, Gait, Transfer, Bed Mobility, ROM Treatment Plan: Continue Plan of Care Bed Mobility, Education, Functional Activity Kaity, Functional Strength, Group Therapy, Gait, Safety, Therapeutic Exercise, Transfers Treatment Duration: Jun 12, 2022 Frequency: At least 5 of 7 days/Wk (IRF) Estimated Hrs Per Day: 1.5 hours per day OT IPOC Problems: Decreased Activ Tolerance, Decreased Safety Aware, Decreased UE Strength, Impaired Coordination, Impaired Funct Balance, Impaired I ADL's, Impaired Self-Care Skills OT Treatment, Training and Edu: Yes Plan of Care: ADL Retraining, Functional Mobility, Group Exercise/Act as Ind, UE Funct Exercise/Act Treatment Duration: Jun 05, 2022 Frequency: At least 5 of 7 days/Wk (IRF) Estimated Hrs Per Day: 1.5 hours per day (75-90 min/day ) ST IPOC Speech Therapy Treatment Plan: Discontinue ST Treatment Duration: May 23, 2022 Frequency: 1 time per week Estimated Hrs Per Day: .5 hour per day Headhunter/Case Mgmt Headhunter/Case Managemen: Discharge Planning Dietitian/Agriculture Mechanic Dietitian/Agriculture Mechanic to monitor nutritional status and make changes and/or recommendations as needed and work with speech pathology on dietary upgrades as the occur. Physician IPOC Medical Issues being managed closely and that require the 24 hour availability of a physician: Recent hip fracture with valvular heart disease with atrial fibrillation will require close monitoring for any cardiac dysfunction he will need close monitoring of blood pressure Medical Issues: Bowel/Bladder Function, DVT Prophylaxis, Falls Precautions, Fluid/Electrolyte/Nutrition Balance, Infection Protection, Pain Management, Wound Care Brief Synthesis of Preadmission Screen, Post-Admission Evaluation, and Therapy Evaluations: PT and OT will focus on regaining function with use of assistive devices in order to gain stamina and prevent falls and ultimately return back home with independent ADLs Medical Prognosis: Good Anticipated Length of Stay: 7 days DEBBIE LILLY DO May 25, 2022 06:38
--- NOTE | 2022-05-25 06:39 | PM&R Progress Note ---
Subjective HPI/CC On Admission Date Seen by Provider: May 25, 2022 Time Seen by Provider: 10:30 Subjective/Events-last exam 05/25/2022: No major issues BM 05/24 and colostomy working well No pain reported Working with PT 05/24/2022: Doing really well No pain is reported No falls Checked meds and labs 05/23/22: Patient doing well Pain is controlled without pain pills Labs reviewed Echo ordered No other concerns Chief complaint: Right femoral neck fracture HPI: This is an 82-year-old female clinic patient of Dr. Black in [place] who presents following a successful right femoral neck fracture repair at [facility]. She has a past medical history of chronic kidney disease and hypertension. Her prior level of function was independent without the use of assistive device. She lives at home with her spouse. She does have a colostomy. S Patient is an 82 year old woman admitted to inpatient rehab following a fracture of her right femoral neck after falling on concrete last Friday, 05/17. Her fracture was treated with percutaneous pinning and she is up and mobilizing with assistance. Her primary care doctor is Dr. Mejia in [place]. She has a past medical history of CKD stage III and hypertension. 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 No previous history of cardiac or pulmonary disease. Current medications include tramadol, hydrocodone, L-lysine, norvasc, hydralazine, apixaban, B12, cholecalciferol, and flintstones vitamins with iron. She is on a cardiac diet. Experiences no pain while at rest. Notes minor nausea since around noon as well as fatigue even though she slept well the previous night. Denies SOB, chest pain, chills, urinary issues, or feeling feverish. She has a colostomy bag and notes no problems with stool consistency. Her goal on discharge is to go home with her spouse. O Cardiac: holosystolic murmur noted with possible AV block, no S3 or S4 heart sounds auscultated, pulses equal bilaterally in radial and dorsalis pedis arteries (2+), no apparent JVD Pulmonary: lungs clear to auscultation bilaterally A/P Status post right femoral neck fracture - fracture stabilized through percutaneous pinning. Patient to continue OT and PT. Monitor for signs of infection or anemia. Goal to be discharged home with spouse. May need a bone scan to assess further risk of fractures. Continue prescribed pain medications as needed. Hypertension - continue medical management with norvasc and hydralazine. Continue cardiac diet. Chronic kidney disease Stage III - continue medical management, chemistry panel to assess kidney function. Avoid nephrotoxic drugs. Possible aortic stenosis - echocardiogram to assess for structural abnormalities Possible AV block - may need EKG to assess for possible arrhythmia DVT prophylaxis - apixaban Review of Systems General: Fatigue, Malaise Objective Exam Vital Signs Vital Signs Date Time Temp Pulse Resp B/P (MAP) Pulse Ox O2 Delivery O2 Flow Rate FiO2 05/25/22 21:20 95 Room Air 05/25/22 19:41 36.8 78 16 131/62 (85) Capillary Refill : General Appearance: No Apparent Distress, WD/WN, Chronically ill HEENT: PERRL/EOMI, Normal ENT Inspection, Pharynx Normal Neck: Full Range of Motion, Normal Inspection, Non Tender, Supple, Carotid Bruit Respiratory: Chest Non Tender, Lungs Clear, Normal Breath Sounds, No Accessory Muscle Use, No Respiratory Distress Cardiovascular: Regular Rate, Rhythm, No Edema, No Gallop, No JVD, Normal Peripheral Pulses, Systolic Murmur Gastrointestinal: Normal Bowel Sounds, No Organomegaly, No Pulsatile Mass, Non Tender, Soft Back: Normal Inspection, No CVA Tenderness, No Vertebral Tenderness Extremity: Normal Capillary Refill, Normal Inspection, Normal Range of Motion (Except right leg), Non Tender, No Calf Tenderness, No Pedal Edema Neurologic/Psychiatric: Alert, Oriented x3, Normal Mood/Affect, grain cleaner II-XII Norm as Tested, Abnormal Gait, Motor Weakness (Right leg) Skin: Normal Color, Warm/Dry Lymphatic: No Adenopathy Results/Procedures Lab Patient resulted labs reviewed. FIM Transfers Therapy Code Descriptions/Definitions Functional [place] Measure: 0=Not Assessed/NA 4=Minimal Assistance 1=Total Assistance 5=Supervision or Setup 2=Maximal Assistance 6=Modified [place] 3=Moderate Assistance 7=Complete IndependenceSCALE: Activities may be completed with or without assistive devices. 0-Ezkjpsjoot-ycxngub completes the activity by him/herself with no assistance from a helper. 5-Set-up or Clean-up Assistance-helper sets up or cleans up; patient completes activity. [place] assists only prior to or following the activity. 4-Supervision or Touching Assistance-helper provides verbal cues and/or touching/steadying and/or contact guard assistance as patient completes activity. Assistance may be provided throughout the activity or intermittently. 3-Partial/Moderate Assistance-helper does LESS THAN HALF the effort. [place] lifts, holds or supports trunk or limbs, but provides less than half the effort. 2-Substantial/Maximal Assistance-helper does MORE THAN HALF the effort. [place] lifts or holds trunk or limbs and provides more than half the effort. 3-Hjjvuhiix-kyqoai does ALL the effort. Patient does none of the effort to complete the activity. Or, the assistance of 2 or more helpers is required for the patient to complete the activity. If activity was not attempted, code reason: 7-Patient Refused. 9-Not Applicable-not attempted and the patient did not perform the activity before the current illness, exacerbation or injury. 10-Not Attempted due to Environmental Limitations-(lack of equipment, weather restraints, etc.). 88-Not Attempted due to Medical Conditions or Safety Concerns. Roll Left to Right (QC): 6 Sit to Lying (QC): 6 Sit to Stand (QC): 6 Chair/Bss-ct-Subbl Xfer(QC): 6 Car Transfer (QC): 6 Gait Training Does the Patient Walk?: Yes Walk 10 feet (QC): 4 Walk 50 ft with 2 Turns(QC): 4 Walk 150 ft (QC): 4 Walking 10ft/uneven surface-QC: 4 Gait Persons Needed: 1 Gait Assistive Device: FWW Wheelchair Training Does the Pt Use a Wheelchair?: Yes Distance: 100' Wheel 50 ft with 2 turns (QC): 3 Wheel 150 ft (QC): 88 Type of Wheelchair: Manual Stair Training #of Steps: 1 1 Step (curb) (QC): 4 4 Steps (QC): 88 12 Steps (QC): 88 Balance Picking up an Object (QC): 4 (CGA using outbound sales consultant) ADL-Treatment Eating (QC): 6 Oral Hygiene (QC): 4 (SBA for safety due to prolonged standing) Shower/Bathe Self (QC): 4 Upper Body Dressing (QC): 6 Lower Body Dressing (QC): 6 On/Off Footwear (QC): 5 Toileting Hygiene (QC): 6 Toilet Transfer (QC): 6 Assessment/Plan Assessment and Plan Assess & Plan/Chief Complaint Assessment: Right femoral neck fracture status post uncomplicated repair Hypertension Cardiac murmur obtaining echocardiogram Chronic kidney disease 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 Anemia of kidney disease Plan: Pain control Home meds Intensive rehab 05/23/22: Supportive care Pain control 05/24/2022: Continue aggressive therapy Supportive care 05/25/2022: Monitor pain (1) Right femoral shaft fracture DEBBIE LILLY DO May 25, 2022 06:39
[2022-05-25] MEDS: MULTIVITAMINS LIQUID 15 ML UDC PO SCH (06:51)
[2022-05-25 07:30] VITALS: BP 115/59
--- NOTE | 2022-05-25 08:57 | Physical Therapy Daily Note ---
PT Daily Note-Current Subjective Pt. n recliner after brkfst, pt. c/o she has had R shoulder pain all night, woke her up and still hurting right now, rates at 6/10. Pt. states she has had this off and on and has used heat previously. Pt. suggests the heavy wt bearing on the FWW may have caused this to flare. Pain Numeric Pain Scale: 6 Location: Right Location Body Site: Shoulder Pain Description: Ache Section J - Health Conditions 1. Rarely or not at all 2. Occasionally 3. Frequently 4. Almost constantly 8. Unable to answer Pain Effect on Sleep: 3 (1) Pain Interference with Therapy: 1 Pain Interference w/Day-to-Day: 3 Mental Status Patient Orientation: Normal For Age Transfers SCALE: Activities may be completed with or without assistive devices. 5-Cucxtdrast-xlyecyc completes the activity by him/herself with no assistance from a helper. 5-Set-up or Clean-up Assistance-helper sets up or cleans up; patient completes activity. [place] assists only prior to or following the activity. 4-Supervision or Touching Assistance-helper provides verbal cues and/or touching/steadying and/or contact guard assistance as patient completes activity. Assistance may be provided throughout the activity or intermittently. 3-Partial/Moderate Assistance-helper does LESS THAN HALF the effort. [place] lifts, holds or supports trunk or limbs, but provides less than half the effort. 2-Substantial/Maximal Assistance-helper does MORE THAN HALF the effort. [place] lifts or holds trunk or limbs and provides more than half the effort. 7-Zjziyegrl-fvdjeq does ALL the effort. Patient does none of the effort to complete the activity. Or, the assistance of 2 or more helpers is required for the patient to complete the activity. If activity was not attempted, code reason: 7-Patient Refused. 9-Not Applicable-not attempted and the patient did not perform the activity before the current illness, exacerbation or injury. 10-Not Attempted due to Environmental Limitations-(lack of equipment, weather restraints, etc.). 88-Not Attempted due to Medical Conditions or Safety Concerns. Weight Bearing Right Lower Extremity: Right Touch Toe Bearing Left Lower Extremity: Left Full Weight Bearing Exercises Seated Therapy Exercises: Ankle pumps, Long arc quads, Hip flexion, Hip abd/add Seated Reps: 20 Treatments warmed blanket heat to right shoulder with pt stating this was soothing, Bilat L E seated therex as above, pt. demonstrates limited sh Flexion R shoulder Assessment Current Status: Fair Progress limited by R shoulder pain today and felt she should not stress it with wt bearing if not needed. Heat seemed soothing to pt PT Short Term Goals Short Term Goals Time Frame: May 22, 2022 Sit to stand: 4 (SBA) Chair/hic-rj-cdxkk transfer: 4 (SBA) Walk 10 feet: 4 (SBA) Walk 50 feet with two turns: 4 (SBA) Walk 150 feet: 4 (SBA) PT [facility] Goals Clay Thrower Goals PT [facility] Goals Time Frame: Jun 12, 2022 Roll Left & Right (QC): 6 Sit to Lying (QC): 6 Lying-Sitting on Side/Bed(QC): 6 Sit to Stand (QC): 6 Chair/Grb-wt-Erqjg Xfer(QC): 6 Toilet Transfer (QC): 6 Car Transfer (QC): 6 Does the Patient Walk: Yes Walk 10 feet (QC): 6 Walk 50ft with 2 Turns (QC): 6 Walk 150 ft (QC): 6 Walking 10ft on Uneven Surface: 6 1 Step (curb) (QC): 6 4 Steps (QC): 6 12 Steps (QC): 88 Picking up an Object (QC): 6 Wheel 50 feet with 2 turns (QC: 6 Type: Manual Wheel 150 feet: 6 Type: Manual PT Plan Treatment/Plan Treatment Plan: Continue Plan of Care Treatment Plan: Bed Mobility, Education, Functional Activity Kaity, Functional Strength, Group Therapy, Gait, Safety, Therapeutic Exercise, Transfers Treatment Duration: Jun 12, 2022 Frequency: At least 5 of 7 days/Wk (IRF) Estimated Hrs Per Day: 1.5 hours per day Patient and/or Family Agrees t: Yes Time Time In: 800 Time Out: 820 DATE: May 25, 2022 Total Billed Treatment Time: 20 Total Billed Treatment 1,EX20m BELKYS VALENCIA INSTALLER MOLDING AND TRIM May 25, 2022 08:57
[2022-05-25] MEDS: amLODIPine 10 MG (NORVASC) TAB PO SCH (09:00)
[2022-05-25] MEDS: APIXABAN 2.5 MG (ELIQUIS) TABLET PO SCH ×2 (09:00→21:25)
[2022-05-25] MEDS: SENNA W/DOCUSATE (SENOKOT S) TABLET PO SCH ×2 (09:00→21:25)
[2022-05-25] MEDS: VITAMIN D3 25 MCG (1,000 UNITS) TABLET PO SCH (09:00)
[2022-05-25] MEDS: hydrALAZINE (APRESOLINE) 25 MG TAB PO SCH ×2 (10:00→21:25)
[2022-05-25] MEDS: DOCUSATE SODIUM 100 MG (COLACE) CAP PO SCH ×2 (10:48→21:25)
[2022-05-25] MEDS: polyethylene glycoL POWDER 17 GM (MIRALAX) PACK PO SCH ×2 (10:49→21:25)
[2022-05-25] MEDS: MECOBALAMIN 1000 MCG SL SCH (10:50)
[2022-05-25] MEDS: HYDROcodone/APAP 5 MG/325 MG (LORTAB) TAB PO PRN ×2 (11:45→17:24)
[2022-05-25 19:41] VITALS: BP 131/62
[2022-05-26] MEDS: MULTIVITAMINS LIQUID 15 ML UDC PO SCH (06:35)
--- NOTE | 2022-05-26 07:49 | PM&R Progress Note ---
Subjective HPI/CC On Admission Date Seen by Provider: May 26, 2022 Time Seen by Provider: 15:30 Subjective/Events-last exam 05/26/2022: Improved status Sleeping currently No issues Colostomy functioning well 05/25/2022: No major issues BM 05/24 and colostomy working well No pain reported Working with PT 05/24/2022: Doing really well No pain is reported No falls Checked meds and labs 05/23/22: Patient doing well Pain is controlled without pain pills Labs reviewed Echo ordered No other concerns Chief complaint: Right femoral neck fracture HPI: This is an 82-year-old female clinic patient of Dr. Black in [place] who presents following a successful right femoral neck fracture repair at [facility]. She has a past medical history of chronic kidney disease and hypertension. Her prior level of function was independent without the use of assistive device. She lives at home with her spouse. She does have a colostom y. S Patient is an 82 year old woman admitted to inpatient rehab following a fracture of her right femoral neck after falling on concrete last Friday, 05/17. Her fracture was treated with percutaneous pinning and she is up and mobilizing with assistance. Her primary care doctor is Dr. Mejia in [place]. She has a past medical history of CKD stage III and hypertension. 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 No previous history of cardiac or pulmonary disease. Current medications include tramadol, hydrocodone, L-lysine, norvasc, hydralazine, apixaban, B12, cholecalciferol, and flintstones vitamins with iron. She is on a cardiac diet. Experiences no pain while at rest. Notes minor nausea since around noon as well as fatigue even though she slept well the previous night. Denies SOB, chest pain, chills, urinary issues, or feeling feverish. She has a colostomy bag and notes no problems with stool consistency. Her goal on discharge is to go home with her spouse. O Cardiac: holosystolic murmur noted with possible AV block, no S3 or S4 heart sounds auscultated, pulses equal bilaterally in radial and dorsalis pedis arteries (2+), no apparent JVD Pulmonary: lungs clear to auscultation bilaterally A/P Status post right femoral neck fracture - fracture stabilized through percutaneous pinning. Patient to continue OT and PT. Monitor for signs of infection or anemia. Goal to be discharged home with spouse. May need a bone scan to assess further risk of fractures. Continue prescribed pain medications as needed. Hypertension - continue medical management with norvasc and hydralazine. Continue cardiac diet. Chronic kidney disease Stage III - continue medical management, chemistry panel to assess kidney function. Avoid nephrotoxic drugs. Possible aortic stenosis - echocardiogram to assess for structural abnormalities Possible AV block - may need EKG to assess for possible arrhythmia DVT prophylaxis - apixaban Review of Systems General: Fatigue, Malaise Objective Exam Vital Signs Vital Signs Date Time Temp Pulse Resp B/P (MAP) Pulse Ox O2 Delivery O2 Flow Rate FiO2 05/26/22 21:00 Room Air 05/26/22 20:00 37.1 65 12 129/61 (83) 95 Capillary Refill : General Appearance: No Apparent Distress, WD/WN, Chronically ill HEENT: PERRL/EOMI, Normal ENT Inspection, Pharynx Normal Neck: Full Range of Motion, Normal Inspection, Non Tender, Supple, Carotid Br uit Respiratory: Chest Non Tender, Lungs Clear, Normal Breath Sounds, No Accessory Muscle Use, No Respiratory Distress Cardiovascular: Regular Rate, Rhythm, No Edema, No Gallop, No JVD, Normal Peripheral Pulses, Systolic Murmur Gastrointestinal: Normal Bowel Sounds, No Organomegaly, No Pulsatile Mass, Non Tender, Soft Back: Normal Inspection, No CVA Tenderness, No Vertebral Tenderness Extremity: Normal Capillary Refill, Normal Inspection, Normal Range of Motion (Except right leg), Non Tender, No Calf Tenderness, No Pedal Edema Neurologic/Psychiatric: Alert, Oriented x3, Normal Mood/Affect, senior adults director II-XII Norm as Tested, Abnormal Gait, Motor Weakness (Right leg) Skin: Normal Color, Warm/Dry Lymphatic: No Adenopathy Results/Procedures Lab Patient resulted labs reviewed. FIM Transfers Therapy Code Descriptions/Definitions Functional [place] Measure: 0=Not Assessed/NA 4=Minimal Assistance 1=Total Assistance 5=Supervision or Setup 2=Maximal Assistance 6=Modified [place] 3=Moderate Assistance 7=Complete IndependenceSCALE: Activities may be completed with or without assistive devices. 1-Uuwavtervn-anjizzx completes the activity by him/herself with no assistance from a helper. 5-Set-up or Clean-up Assistance-helper sets up or cleans up; patient completes activity. [place] assists only prior to or following the activity. 4-Supervision or Touching Assistance-helper provides verbal cues and/or touching/steadying and/or contact guard assistance as patient completes activity. Assistance may be provided throughout the activity or intermittently. 3-Partial/Moderate Assistance-helper does LESS THAN HALF the effort. [place] lifts, holds or supports trunk or limbs, but provides less than half the effort. 2-Substantial/Maximal Assistance-helper does MORE THAN HALF the effort. [place] lifts or holds trunk or limbs and provides more than half the effort. 4-Hnxyssszc-hbzvja does ALL the effort. Patient does none of the effort to complete the activity. Or, the assistance of 2 or more helpers is required for the patient to complete the activity. If activity was not attempted, code reason: 7-Patient Refused. 9-Not Applicable-not attempted and the patient did not perform the activity before the current illness, exacerbation or injury. 10-Not Attempted due to Environmental Limitations-(lack of equipment, weather restraints, etc.). 88-Not Attempted due to Medical Conditions or Safety Concerns. Roll Left to Right (QC): 6 Sit to Lying (QC): 6 Sit to Stand (QC): 6 Chair/Aqa-en-Edqci Xfer(QC): 6 Car Transfer (QC): 6 Gait Training Does the Patient Walk?: Yes Walk 10 feet (QC): 4 Walk 50 ft with 2 Turns(QC): 4 Walk 150 ft (QC): 4 Walking 10ft/uneven surface-QC: 4 Gait Persons Needed: 1 Gait Assistive Device: FWW Wheelchair Training Does the Pt Use a Wheelchair?: Yes Distance: 100' Wheel 50 ft with 2 turns (QC): 3 Wheel 150 ft (QC): 88 Type of Wheelchair: Manual Stair Training #of Steps: 1 1 Step (curb) (QC): 4 4 Steps (QC): 88 12 Steps (QC): 88 Balance Picking up an Object (QC): 4 (CGA using tobacco prizer) ADL-Treatment Eating (QC): 6 Oral Hygiene (QC): 4 (SBA for safety due to prolonged standing) Shower/Bathe Self (QC): 4 Upper Body Dressing (QC): 6 Lower Body Dressing (QC): 6 On/Off Footwear (QC): 5 Toileting Hygiene (QC): 6 Toilet Transfer (QC): 6 Assessment/Plan Assessment and Plan Assess & Plan/Chief Complaint Assessment: Right femoral neck fracture status post uncomplicated repair Hypertension Cardiac murmur obtaining echocardiogram Chronic kidney disease 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 Anemia of kidney disease Plan: Pain control Home meds Intensive rehab 05/23/22: Supportive care Pain control 05/24/2022: Continue aggressive therapy Supportive care 05/25/2022: Monitor pain 05/26/2022: Monitor closely (1) Right femoral shaft fracture DEBBIE LILLY DO May 26, 2022 07:49
[2022-05-26 09:09] VITALS: BP 119/56
[2022-05-26] MEDS: DOCUSATE SODIUM 100 MG (COLACE) CAP PO SCH ×2 (09:38→20:53)
[2022-05-26] MEDS: VITAMIN D3 25 MCG (1,000 UNITS) TABLET PO SCH (09:38)
[2022-05-26] MEDS: amLODIPine 10 MG (NORVASC) TAB PO SCH (09:38)
[2022-05-26] MEDS: SENNA W/DOCUSATE (SENOKOT S) TABLET PO SCH ×2 (09:38→20:59)
[2022-05-26] MEDS: APIXABAN 2.5 MG (ELIQUIS) TABLET PO SCH ×2 (09:38→20:59)
[2022-05-26] MEDS: hydrALAZINE (APRESOLINE) 25 MG TAB PO SCH ×2 (09:38→20:47)
[2022-05-26] MEDS: polyethylene glycoL POWDER 17 GM (MIRALAX) PACK PO SCH ×2 (12:20→20:54)
[2022-05-26] MEDS: MECOBALAMIN 1000 MCG SL SCH (12:20)
[2022-05-26 20:00] VITALS: BP 129/61
--- NOTE | 2022-05-27 06:20 | PM&R Progress Note ---
Subjective HPI/CC On Admission Date Seen by Provider: May 27, 2022 Time Seen by Provider: 08:30 Subjective/Events-last exam 05/27/2022: Patient doing well Colostomy is functioning well Pain is doing well Ambulating well 05/26/2022: Improved status Sleeping currently No issues Colostomy functioning well 05/25/2022: No major issues BM 05/24 and colostomy working well No pain reported Working with PT 05/24/2022: Doing really well No pain is reported No falls Checked meds and labs 05/23/22: Patient doing well Pain is controlled without pain pills Labs reviewed Echo ordered No other concerns Chief complaint: Right femoral neck fracture HPI: This is an 82-year-old female clinic patient of Dr. Black in [place] who presents following a successful right femoral neck fracture repair at [facility]. She has a past medical history of chronic kidney disease and hypertension. Her prior level of function was independent without the use of assistive device. She lives at home with her spouse. She does have a colostomy. S Patient is an 82 year old woman admitted to inpatient rehab following a fracture of her right femoral neck after falling on concrete last Friday, 05/17. Her fracture was treated with percutaneous pinning and she is up and mobilizing with assistance. Her primary care doctor is Dr. Mejia in [place]. She has a past medical history of CKD stage III and hypertension. 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 No previous history of cardiac or pulmonary disease. Current medications include tramadol, hydrocodone, L-lysine, norvasc, hydralazine, apixaban, B12, cholecalciferol, and flintstones vitamins with iron. She is on a cardiac diet. Experiences no pain while at rest. Notes minor nausea since around noon as well as fatigue even though she slept well the previous night. Denies SOB, chest pain, chills, urinary issues, or feeling feverish. She has a colostomy bag and notes no problems with stool consistency. Her goal on discharge is to go home with her spouse. O Cardiac: holosystolic murmur noted with possible AV block, no S3 or S4 heart sounds auscultated, pulses equal bilaterally in radial and dorsalis pedis arteries (2+), no apparent JVD Pulmonary: lungs clear to auscultation bilaterally A/P Status post right femoral neck fracture - fracture stabilized through percutaneous pinning. Patient to continue OT and PT. Monitor for signs of infection or anemia. Goal to be discharged home with spouse. May need a bone sc an to assess further risk of fractures. Continue prescribed pain medications as needed. Hypertension - continue medical management with norvasc and hydralazine. Continue cardiac diet. Chronic kidney disease Stage III - continue medical management, chemistry panel to assess kidney function. Avoid nephrotoxic drugs. Possible aortic stenosis - echocardiogram to assess for structural abnormalities Possible AV block - may need EKG to assess for possible arrhythmia DVT prophylaxis - apixaban Review of Systems General: Fatigue, Malaise Objective Exam Vital Signs Vital Signs Date Time Temp Pulse Resp B/P (MAP) Pulse Ox O2 Delivery O2 Flow Rate FiO2 05/27/22 20:30 36.3 78 18 146/64 (91) 94 Room Air Capillary Refill : General Appearance: No Apparent Distress, WD/WN, Chronically ill HEENT: PERRL/EOMI, Normal ENT Inspection, Pharynx Normal Neck: Full Range of Motion, Normal Inspection, Non Tender, Supple, Carotid Bruit Respiratory: Chest Non Tender, Lungs Clear, Normal Breath Sounds, No Accessory Muscle Use, No Respiratory Distress Cardiovascular: Regular Rate, Rhythm, No Edema, No Gallop, No JVD, Normal Peripheral Pulses, Systolic Murmur Gastrointestinal: Normal Bowel Sounds, No Organomegaly, No Pulsatile Mass, Non Tender, Soft Back: Normal Inspection, No CVA Tenderness, No Vertebral Tenderness Extremity: Normal Capillary Refill, Normal Inspection, Normal Range of Motion (Except right leg), Non Tender, No Calf Tenderness, No Pedal Edema Neurologic/Psychiatric: Alert, Oriented x3, Normal Mood/Affect, trade mark examiner II-XII Norm as Tested, Abnormal Gait, Motor Weakness (Right leg) Skin: Normal Color, Warm/Dry Lymphatic: No Adenopathy Results/Procedures Lab Laboratory Tests 05/27/22 05:56 Patient resulted labs reviewed. FIM Transfers Therapy Code Descriptions/Definitions Functional [place] Measure: 0=Not Assessed/NA 4=Minimal Assistance 1=Total Assistance 5=Supervision or Setup 2=Maximal Assistance 6=Modified [place] 3=Moderate Assistance 7=Complete IndependenceSCALE: Activities may be completed with or without assistive devices. 2-Cfuiazkmbx-roablkp completes the activity by him/herself with no assistance from a helper. 5-Set-up or Clean-up Assistance-helper sets up or cleans up; patient completes activity. [place] assists only prior to or following the activity. 4-Supervision or Touching Assistance-helper provides verbal cues and/or touching/steadying and/or contact guard assistance as patient completes activity. Assistance may be provided throughout the activity or intermittently. 3-Partial/Moderate Assistance-helper does LESS THAN HALF the effort. [place] lifts, holds or supports trunk or limbs, but provides less than half the effort. 2-Substantial/Maximal Assistance-helper does MORE THAN HALF the effort. [place] lifts or holds trunk or limbs and provides more than half the effort. 6-Pvedcmgqu-meizsw does ALL the effort. Patient does none of the effort to complete the activity. Or, the assistance of 2 or more helpers is required for the patient to complete the activity. If activity was not attempted, code reason: 7-Patient Refused. 9-Not Applicable-not attempted and the patient did not perform the activity before the current illness, exacerbation or injury. 10-Not Attempted due to Environmental Limitations-(lack of equipment, weather restraints, etc.). 88-Not Attempted due to Medical Conditions or Safety Concerns. Roll Left to Right (QC): 6 Sit to Lying (QC): 6 Sit to Stand (QC): 6 Chair/Iwj-qx-Pefdz Xfer(QC): 6 Car Transfer (QC): 6 Gait Training Does the Patient Walk?: Yes Walk 10 feet (QC): 4 Walk 50 ft with 2 Turns(QC): 4 Walk 150 ft (QC): 4 Walking 10ft/uneven surface-QC: 4 Gait Persons Needed: 1 Gait Assistive Device: FWW Wheelchair Training Does the Pt Use a Wheelchair?: Yes Distance: 100' Wheel 50 ft with 2 turns (QC): 3 Wheel 150 ft (QC): 88 Type of Wheelchair: Manual Stair Training #of Steps: 1 1 Step (curb) (QC): 4 4 Steps (QC): 88 12 Steps (QC): 88 Balance Picking up an Object (QC): 4 (CGA using club former) ADL-Treatment Eating (QC): 6 Oral Hygiene (QC): 4 (SBA for safety due to prolonged standing) Shower/Bathe Self (QC): 4 Upper Body Dressing (QC): 6 Lower Body Dressing (QC): 6 On/Off Footwear (QC): 5 Toileting Hygiene (QC): 6 Toilet Transfer (QC): 6 Assessment/Plan Assessment and Plan Assess & Plan/Chief Complaint Assessment: Right femoral neck fracture status post uncomplicated repair Hypertension Cardiac murmur obtaining echocardiogram Chronic kidney disease 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 Anemia of kidney disease Plan: Pain control Home meds Intensive rehab 05/23/22: Supportive care Pain control 05/24/2022: Continue aggressive therapy Supportive care 05/25/2022: Monitor pain 05/26/2022: Monitor closely 05/27/2022: Supportive care Monitor closely (1) Right femoral shaft fracture DEBBIE LILLY DO May 27, 2022 06:20
[2022-05-27 06:27] LABS: BASOPHILS % (AUTO) 1 % (0-10); EOSINOPHILS # (AUTO) 0.2 10^3/uL (0.0-0.3); EOSINOPHILS % (AUTO) 2 % (0-10); HEMATOCRIT 33 % (35-52); HEMOGLOBIN 10.6 g/dL (11.5-16.0); LYMPHOCYTES % (AUTO) 15 % (12-44); MEAN CORPUSCULAR HEMOGLOBIN 30 pg (25-34); MEAN CORPUSCULAR HGB CONC 33 g/dL (32-36); MEAN CORPUSCULAR VOLUME 93 fL (80-99); MEAN PLATELET VOLUME 9.9 fL (9.0-12.2); MONOCYTES # (AUTO) 0.5 10^3/uL (0.0-1.0); MONOCYTES % (AUTO) 8 % (0-12); NEUTROPHILS # (AUTO) 4.9 10^3/uL (1.8-7.8); NEUTROPHILS % (AUTO) 75 % (42-75); PLATELET COUNT 297 10^3/uL (130-400); WHITE BLOOD COUNT 6.6 10^3/uL (4.3-11.0)
[2022-05-27 06:41] LABS: ALBUMIN 3.2 GM/DL (3.2-4.5); POTASSIUM 4.2 MMOL/L (3.6-5.0)
[2022-05-27 06:43] LABS: CALCIUM 9.2 MG/DL (8.5-10.1)
[2022-05-27 06:44] LABS: TOTAL PROTEIN 6.4 GM/DL (6.4-8.2)
[2022-05-27 06:46] LABS: BILIRUBIN,TOTAL 0.4 MG/DL (0.1-1.0)
[2022-05-27 06:47] LABS: CREATININE SERUM 1.44 MG/DL (0.60-1.30)
[2022-05-27] MEDS: MULTIVITAMINS LIQUID 15 ML UDC PO SCH (07:02)
[2022-05-27 07:35] VITALS: BP 145/61
[2022-05-27] MEDS: APIXABAN 2.5 MG (ELIQUIS) TABLET PO SCH ×2 (08:53→21:27)
[2022-05-27] MEDS: amLODIPine 10 MG (NORVASC) TAB PO SCH (08:54)
[2022-05-27] MEDS: VITAMIN D3 25 MCG (1,000 UNITS) TABLET PO SCH (08:54)
[2022-05-27] MEDS: hydrALAZINE (APRESOLINE) 25 MG TAB PO SCH ×2 (08:54→21:26)
--- NOTE | 2022-05-27 09:36 | Progress Note ---
CELESTINA VILLAREAL 05/27/22 0936: Progress Note S: Yao Connell is an 82 yo female who was admitted to inpatient rehab from [facility] on 05/22 following percutaneous pinning for right femoral neck fracture secondary to a fall. The patient's PCP is Dr. Mejia in [place]. The patient is in her bed at the time of encounter and reports she feels well today and feels improved on PT. She states she is able to ambulate with a walker though still is unable to bear weight on her right leg. O: VS stable: Temp 36.4 F; HR 69; RR 16; BP 145/61; SpO2 95% RA Exam: -Constitutional: Elderly white female seated in her bed. Appears comfortable. Calm and cooperative. -Cardiovascular: RRR. No murmurs. -Pulmonary: LCTAB. No wheezes, crackles, rales, rhonchi. -Peripheral Pulses: 2+radial pulses bilaterally Labs: -05/27: BUN 30, Cr 1.44, Glu 121, HGB 10.6 Imaging: -05/23: Echo showing 55-60% EF. A/P 1. Right femoral neck fracture s/p - percutaneous pinning. Patient to continue OT and PT. Continue prescribed PO pain medications as needed. 2. Hypertension - continue medical management with Norvasc and hydralazine. Continue cardiac diet. 3. Chronic kidney disease Stage III, monitor Cr and BUN 4. DVT prophylaxis - Continue apixaban 5. Low total protein - Resolved on 05/27 6. Anemia - HGB 10.6. Continue monitoring HGB and for possible symptoms. DANIA LILLY DO 05/28/22 0512: Supervisory-Addendum Brief Verification & Attestation Participated in pt care: history, MDM, physical Personally performed: exam, history, MDM, supervision of care Care discussed with: Medical Student Procedures: n/a Results interpretation: Verified all documentation Verification and Attestation of Medical Student E/M Service A medical student performed and documented this service in my presence. I reviewed and verified all information documented by the medical student and made modifications to such information, when appropriate. I personally performed the physical exam and medical decision making. Dania Lilly May 28, 2022,05:11 CELESTINA VILLAREAL May 27, 2022 09:36 DANIA LILLY DO May 28, 2022 05:12
--- NOTE | 2022-05-27 09:36 | Progress Note ---
CELESTINA VILLAREAL May 27, 2022 09:36
[2022-05-27] MEDS: polyethylene glycoL POWDER 17 GM (MIRALAX) PACK PO SCH ×2 (09:57→21:27)
[2022-05-27] MEDS: DOCUSATE SODIUM 100 MG (COLACE) CAP PO SCH ×2 (09:57→21:27)
[2022-05-27] MEDS: MECOBALAMIN 1000 MCG SL SCH (09:58)
[2022-05-27] MEDS: SENNA W/DOCUSATE (SENOKOT S) TABLET PO SCH ×2 (09:58→21:28)
--- NOTE | 2022-05-27 10:30 | Occupational Ther Daily Note ---
OT Current Status-Daily Note Subjective Pt denies pain, agreeable to shower. Appearance Pt left sitting in recliner, all needs within reach at OT departure. Mental Status/Objective Patient Orientation: Person, Place, Situation Attachments: Colostomy/Ileostomy ADL-Treatment Therapy Code Descriptions/Definitions Functional [place] Measure: 0=Not Assessed/NA 4=Minimal Assistance 1=Total Assistance 5=Supervision or Setup 2=Maximal Assistance 6=Modified [place] 3=Moderate Assistance 7=Complete IndependenceSCALE: Activities may be completed with or without assistive devices. 5-Vhgsnzwyus-iuqdyss completes the activity by him/herself with no assistance from a helper. 5-Set-up or Clean-up Assistance-helper sets up or cleans up; patient completes activity. [place] assists only prior to or following the activity. 4-Supervision or Touching Assistance-helper provides verbal cues and/or touching/steadying and/or contact guard assistance as patient completes activity. Assistance may be provided throughout the activity or intermittently. 3-Partial/Moderate Assistance-helper does LESS THAN HALF the effort. [place] lifts, holds or supports trunk or limbs, but provides less than half the effort. 2-Substantial/Maximal Assistance-helper does MORE THAN HALF the effort. [place] lifts or holds trunk or limbs and provides more than half the effort. 3-Bfckiwmzf-schspz does ALL the effort. Patient does none of the effort to complete the activity. Or, the assistance of 2 or more helpers is required for the patient to complete the activity. If activity was not attempted, code reason: 7-Patient Refused. 9-Not Applicable-not attempted and the patient did not perform the activity before the current illness, exacerbation or injury. 10-Not Attempted due to Environmental Limitations-(lack of equipment, weather restraints, etc.). 88-Not Attempted due to Medical Conditions or Safety Concerns. Oral Hygiene (QC): 4 Shower/Bathe Self (QC): 4 Upper Body Dressing (QC): 5 Lower Body Dressing (QC): 4 On/Off Footwear: 5 Toileting Hygiene (QC): 4 Toilet Transfer (QC): 4 Shower performed; majority completed in sitting. Hip dressing covered prior to activity, C/D/I post task. Pt stood only briefly to wash quynh area/buttocks with close SBA. Cue needed for adherence to TTWB. Pt able to reach/wash all body parts without physical assistance. Clothing donned seated on shower bench. Again, cue only for maintaining weight bearing through RLE when standing to manage LB clothing over hips. Other Treatment Poor adherence to TTWB throughout treatment. Several reminders and education on what TTWB is. Due to poor adherence, pt is encouraged to perform NWB at this time. CGA-min a required when hopping into bathroom with use of walker. She fatigues quickly and only able to ambulate (hop) short distances. Pt believes she can ambulate as long as she puts all of her weight on her toes. UE exercises performed with goal to improve strength and endurance needed for functional mobility. Due to c/o pain in R shoulder, no resistance or overhead exercises performed. Pain appears to be related to bicep tendon at shoulder and elbow. Gentle stretching/massage facilitated by therapist. All left UE exercises performed with 2# hand held weight, all joints/planes. 1 x12. Education OT Patient Education: Correct positioning, Energy conservation, Exercise program, Modified ADL techniques, Progress toward Goal/Update tx plan, Purpose of tx/functional activities, Reviewed precautions, Rehab process, Safety issues, Transfer techniques Teaching Recipient: Patient Teaching Methods: Demonstration, Discussion Response to Teaching: Verbalize Understanding, Reinforcement Needed OT Short Term Goals Short Term Goals Time Frame: May 29, 2022 Eatin Oral hygiene: 5 Toileting hygiene: 4 Shower/bathe self: 4 Upper body dressin Lower body dressin Putting on/taking off footwear: 5 OT Correction Goals Correction Goals Time Frame: Jun 05, 2022 Acute change in mental status: 0 Inattention: 0 Disorganized thinkin Altered level of consciousness: 0 Eating (QC): 6 Oral Hygiene (QC): 6 Toileting Hygiene (QC): 6 Shower/Bathe Self (QC): 5 Upper Body Dressing (QC): 6 Lower Body Dressing (QC): 6 On/Off Footwear (QC): 6 Additional Goals: 1-Demonstrate ADL Tasks, 2-Verbalize Understanding, 3- ImproveStrength/Kaity 1=Demonstrate adherence to instructed precautions during ADL tasks. 2=Patient will verbalize/demonstrate understanding of assistive devices/modifications for ADL. 3=Patient will improve strength/tolerance for activity to enable patient to perform ADL's. OT Education/Plan Problem List/Assessment Assessment: Decreased Activ Tolerance, Decreased Safety Aware, Decreased UE Strength, Impaired Funct Balance, Impaired I ADL's, Impaired Self-Care Skills, Restricted Funct UE ROM Discharge Recommendations Plan/Recommendations: Continue POC Treatment Plan/Plan of Care Treatment,Training & Education: Yes Patient would benefit from OT for education, treatment and training to promote independence in ADL's, mobility, safety and/or upper extremity function for ADL's. Plan of Care: ADL Retraining, Functional Mobility, Group Exercise/Act as Ind, UE Funct Exercise/Act Treatment Duration: Jun 05, 2022 Frequency: At least 5 of 7 days/Wk (IRF) Estimated Hrs Per Day: 1.5 hours per day (75-90 min/day ) Agreement: Yes Rehab Potential: Good Time Start Time: 08:55 Stop Time: 10:25 DATE: May 27, 2022 Total Time Billed (hr/min): 90 Billed Treatment Time 1 visit ADL x3 (45 min) EX x3 (45 min) Sia Dobbins OT May 27, 2022 10:30
--- NOTE | 2022-05-27 12:12 | Physical Therapy Daily Note ---
PT Daily Note-Current Subjective Pt sitting in recliner upon arrival. Pt agrees to PT. Pain Numeric Pain Scale: 4 Location: Right Location Body Site: Hip Pain Description: Ache Section J - Health Conditions 1. Rarely or not at all 2. Occasionally 3. Frequently 4. Almost constantly 8. Unable to answer Pain Effect on Sleep: 3 (1) Pain Interference with Therapy: 1 Pain Interference w/Day-to-Day: 3 Mental Status Patient Orientation: Person, Place, Time, Situation Transfers SCALE: Activities may be completed with or without assistive devices. 2-Ethghdfolq-vukoskn completes the activity by him/herself with no assistance from a helper. 5-Set-up or Clean-up Assistance-helper sets up or cleans up; patient completes activity. [place] assists only prior to or following the activity. 4-Supervision or Touching Assistance-helper provides verbal cues and/or t ouching/steadying and/or contact guard assistance as patient completes activity. Assistance may be provided throughout the activity or intermittently. 3-Partial/Moderate Assistance-helper does LESS THAN HALF the effort. [place] lifts, holds or supports trunk or limbs, but provides less than half the effort. 2-Substantial/Maximal Assistance-helper does MORE THAN HALF the effort. [place] lifts or holds trunk or limbs and provides more than half the effort. 3-Synvojzkx-tpivli does ALL the effort. Patient does none of the effort to complete the activity. Or, the assistance of 2 or more helpers is required for the patient to complete the activity. If activity was not attempted, code reason: 7-Patient Refused. 9-Not Applicable-not attempted and the patient did not perform the activity before the current illness, exacerbation or injury. 10-Not Attempted due to Environmental Limitations-(lack of equipment, weather restraints, etc.). 88-Not Attempted due to Medical Conditions or Safety Concerns. Sit to Stand (QC): 6 Toilet Transfer (QC): 6 Weight Bearing Right Lower Extremity: Right Touch Toe Bearing Left Lower Extremity: Left Full Weight Bearing Gait Training Does the Patient Walk?: Yes Distance: 150' x2 Walk 10 feet (QC): 4 Walk 50 ft with 2 Turns(QC): 4 Walk 150 ft (QC): 4 Walking 10ft/uneven surface-QC: 4 Gait Persons Needed: 1 Gait Assistive Device: FWW Stair Training Stair Training: Handrails/: 2 handrails #of Steps: 4 1 Step (curb) (QC): 4 4 Steps (QC): 4 Exercises Seated Therapy Exercises: Ankle pumps, Long arc quads, Hip flexion, Hip abd/add, Glut set Seated Reps: 15 Treatments TF to standing and amb. to BR. Pt amb. in hallway before resting in chair in Therapy gym. Pt completes Seated Ex before completing amb. across uneven surface & amb in hallway. Pt completes 4 steps w/2 hand rails but w/only have one at home. Pt is having ramp built but wants to practice steps in case of use. Pt returns to room to rest at end of tx. All needs met, call light in hand. Assessment Current Status: Good Progress Tx focused on keeping WB status of TTWB. Pt demonstrates difficulty maintaining this status. BOX WORKER explains need to maintain for protection of R LE. PT Short Term Goals Short Term Goals Time Frame: May 22, 2022 Sit to stand: 4 (SBA) Chair/iny-we-iecrd transfer: 4 (SBA) Walk 10 feet: 4 (SBA) Walk 50 feet with two turns: 4 (SBA) Walk 150 feet: 4 (SBA) PT Digital Marketing Analyst Goals Correction Goals PT Digital Marketing Analyst Goals Time Frame: Jun 12, 2022 Roll Left & Right (QC): 6 Sit to Lying (QC): 6 Lying-Sitting on Side/Bed(QC): 6 Sit to Stand (QC): 6 Chair/Xhx-nw-Eupgt Xfer(QC): 6 Toilet Transfer (QC): 6 Car Transfer (QC): 6 Does the Patient Walk: Yes Walk 10 feet (QC): 6 Walk 50ft with 2 Turns (QC): 6 Walk 150 ft (QC): 6 Walking 10ft on Uneven Surface: 6 1 Step (curb) (QC): 6 4 Steps (QC): 6 12 Steps (QC): 88 Picking up an Object (QC): 6 Wheel 50 feet with 2 turns (QC: 6 Type: Manual Wheel 150 feet: 6 Type: Manual PT Plan Problem List Problem List: Activity Tolerance, Functional Strength, Gait Treatment/Plan Treatment Plan: Continue Plan of Care Treatment Plan: Bed Mobility, Education, Functional Activity Kaity, Functional Strength, Group Therapy, Gait, Safety, Therapeutic Exercise, Transfers Treatment Duration: Jun 12, 2022 Frequency: At least 5 of 7 days/Wk (IRF) Estimated Hrs Per Day: 1.5 hours per day Patient and/or Family Agrees t: Yes Safety Risks/Education Patient Education: Gait Training, Steps, Reviewed Precautions, Correct Positioning Teaching Recipient: Patient Teaching Methods: Discussion Response to Teaching: Verbalize Understanding Time Time In: 1100 Time Out: 1200 DATE: May 27, 2022 Total Billed Treatment Time: 60 Total Billed Treatment 1, GT (20m), FA x2 (25m) & EX (15m) ABY MARTIN BOX WORKER May 27, 2022 12:12
[2022-05-27] MEDS ORDERED: CALC600T91 PO (12:26)
--- NOTE | 2022-05-27 15:48 | Physical Therapy Daily Note ---
PT Daily Note-Current Subjective Pt sitting in recliner w/SP and friend present. Pt agrees to PT. Pain Section J - Health Conditions 1. Rarely or not at all 2. Occasionally 3. Frequently 4. Almost constantly 8. Unable to answer Pain Effect on Sleep: 3 (1) Pain Interference with Therapy: 1 Pain Interference w/Day-to-Day: 3 Mental Status Patient Orientation: Person, Place, Time, Situation Transfers SCALE: Activities may be completed with or without assistive devices. 2-Sjwctsnmns-khuyucw completes the activity by him/herself with no assistance from a helper. 5-Set-up or Clean-up Assistance-helper sets up or cleans up; patient completes activity. [place] assists only prior to or following the activity. 4-Supervision or Touching Assistance-helper provides verbal cues and/or touching/steadying and/or contact guard assistance as patient completes activity. Assistance may be provided throughout the activity or intermittently. 3-Partial/Moderate Assistance-helper does LESS THAN HALF the effort. [place] lifts, holds or supports trunk or limbs, but provides less than half the effort. 2-Substantial/Maximal Assistance-helper does MORE THAN HALF the effort. [place] lifts or holds trunk or limbs and provides more than half the effort. 1-Vvfbfifrz-hgheij does ALL the effort. Patient does none of the effort to complete the activity. Or, the assistance of 2 or more helpers is required for the patient to complete the activity. If activity was not attempted, code reason: 7-Patient Refused. 9-Not Applicable-not attempted and the patient did not perform the activity before the current illness, exacerbation or injury. 10-Not Attempted due to Environmental Limitations-(lack of equipment, weather restraints, etc.). 88-Not Attempted due to Medical Conditions or Safety Concerns. Sit to Stand (QC): 6 Weight Bearing Right Lower Extremity: Right Touch Toe Bearing Left Lower Extremity: Left Full Weight Bearing Exercises Supine Ex: Ankle pumps, Quad Set, Glut sets, Heel Slides, Straight leg raise, Hip abd/add Supine Reps: 15 Seated Therapy Exercises: Ankle pumps, Long arc quads, Hip flexion, Hip abd/add Seated Reps: 15 Treatments Pt is issued and completes written HEP for Supine & Seated EX as well as TF to standing and uses BR. Pt returns to recliner to rest at end of tx. All needs met, call light in hand. Assessment Current Status: Good Progress Pt rhys. tx well. PT Short Term Goals Short Term Goals Time Frame: May 22, 2022 Sit to stand: 4 (SBA) Chair/qdb-wt-tqkot transfer: 4 (SBA) Walk 10 feet: 4 (SBA) Walk 50 feet with two turns: 4 (SBA) Walk 150 feet: 4 (SBA) PT Terminal Worker Goals Mcfp Goals PT Terminal Worker Goals Time Frame: Jun 12, 2022 Roll Left & Right (QC): 6 Sit to Lying (QC): 6 Lying-Sitting on Side/Bed(QC): 6 Sit to Stand (QC): 6 Chair/Xiw-qt-Hrgfn Xfer(QC): 6 Toilet Transfer (QC): 6 Car Transfer (QC): 6 Does the Patient Walk: Yes Walk 10 feet (QC): 6 Walk 50ft with 2 Turns (QC): 6 Walk 150 ft (QC): 6 Walking 10ft on Uneven Surface: 6 1 Step (curb) (QC): 6 4 Steps (QC): 6 12 Steps (QC): 88 Picking up an Object (QC): 6 Wheel 50 feet with 2 turns (QC: 6 Type: Manual Wheel 150 feet: 6 Type: Manual PT Plan Problem List Problem List: Activity Tolerance Treatment/Plan Treatment Plan: Continue Plan of Care Treatment Plan: Bed Mobility, Education, Functional Activity Kaity, Functional Strength, Group Therapy, Gait, Safety, Therapeutic Exercise, Transfers Treatment Duration: Jun 12, 2022 Frequency: At least 5 of 7 days/Wk (IRF) Estimated Hrs Per Day: 1.5 hours per day Patient and/or Family Agrees t: Yes Safety Risks/Education Patient Education: Issued Written HEP Teaching Recipient: Patient Teaching Methods: Discussion Response to Teaching: Verbalize Understanding Time Time In: 1340 Time Out: 1410 DATE: May 27, 2022 Total Billed Treatment Time: 30 Total Billed Treatment 1, FA x2 (30m) ABY MARTIN SILO ERECTOR May 27, 2022 15:47
[2022-05-27 20:30] VITALS: BP 146/64
--- NOTE | 2022-05-28 06:29 | PM&R Progress Note ---
Subjective HPI/CC On Admission Date Seen by Provider: May 28, 2022 Time Seen by Provider: 08:30 Subjective/Events-last exam 05/28/2022: Doing well No pain Ready for DC tomorrow 05/27/2022: Patient doing well Colostomy is functioning well Pain is doing well Ambulating well 05/26/2022: Improved status Sleeping currently No issues Colostomy functioning well 05/25/2022: No major issues BM 05/24 and colostomy working well No pain reported Working with PT 05/24/2022: Doing really well No pain is reported No falls Checked meds and labs 05/23/22: Patient doing well Pain is controlled without pain pills Labs reviewed Echo ordered No other concerns Chief complaint: Right femoral neck fracture HPI: This is an 82-year-old female clinic patient of Dr. Black in [place] who presents following a successful right femoral neck fracture repair at [facility]. She has a past medical history of chronic kidney disease and hype rtension. Her prior level of function was independent without the use of assistive device. She lives at home with her spouse. She does have a colostomy. S Patient is an 82 year old woman admitted to inpatient rehab following a fracture of her right femoral neck after falling on concrete last Friday, 05/17. Her fracture was treated with percutaneous pinning and she is up and mobilizing with assistance. Her primary care doctor is Dr. Mejia in [place]. She has a past medical history of CKD stage III and hypertension. 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 No previous history of cardiac or pulmonary disease. Current medications include tramadol, hydrocodone, L-lysine, norvasc, hydralazine, apixaban, B12, cholecalciferol, and flintstones vitamins with iron. She is on a cardiac diet. Experiences no pain while at rest. Notes minor nausea since around noon as well as fatigue even though she slept well the previous night. Denies SOB, chest pain, chills, urinary issues, or feeling feverish. She has a colostomy bag and notes no problems with stool consistency. Her goal on discharge is to go home with her spouse. O Cardiac: holosystolic murmur noted with possible AV block, no S3 or S4 heart sounds auscultated, pulses equal bilaterally in radial and dorsalis pedis arteries (2+), no apparent JVD Pulmonary: lungs clear to auscultation bilaterally A/P Status post right femoral neck fracture - fracture stabilized through percutaneous pinning. Patient to continue OT and PT. Monitor for signs of infection or anemia. Goal to be discharged home with spouse. May need a bone scan to assess further risk of fractures. Continue prescribed pain medications as needed. Hypertension - continue medical management with norvasc and hydralazine. Continue cardiac diet. Chronic kidney disease Stage III - continue medical management, chemistry panel to assess kidney function. Avoid nephrotoxic drugs. Possible aortic stenosis - echocardiogram to assess for structural abnormalities Possible AV block - may need EKG to assess for possible arrhythmia DVT prophylaxis - apixaban Review of Systems General: Fatigue, Malaise Objective Exam Vital Signs Vital Signs Date Time Temp Pulse Resp B/P (MAP) Pulse Ox O2 Delivery O2 Flow Rate FiO2 05/28/22 21:50 Room Air 05/28/22 20:22 37.0 59 16 144/71 (95) 96 Capillary Refill : General Appearance: No Apparent Distress, WD/WN, Chronically ill HEENT: PERRL/EOMI, Normal ENT Inspection, Pharynx Normal Neck: Full Range of Motion, Normal Inspection, Non Tender, Supple, Carotid Bruit Respiratory: Chest Non Tender, Lungs Clear, Normal Breath Sounds, No Accessory Muscle Use, No Respiratory Distress Cardiovascular: Regular Rate, Rhythm, No Edema, No Gallop, No JVD, Normal Peripheral Pulses, Systolic Murmur Gastrointestinal: Normal Bowel Sounds, No Organomegaly, No Pulsatile Mass, Non Tender, Soft Back: Normal Inspection, No CVA Tenderness, No Vertebral Tenderness Extremity: Normal Capillary Refill, Normal Inspection, Normal Range of Motion (Except right leg), Non Tender, No Calf Tenderness, No Pedal Edema Neurologic/Psychiatric: Alert, Oriented x3, Normal Mood/Affect, health equipment servicer II-XII Norm as Tested, Abnormal Gait, Motor Weakness (Right leg) Skin: Normal Color, Warm/Dry Lymphatic: No Adenopathy Results/Procedures Lab Patient resulted labs reviewed. FIM Transfers Therapy Code Descriptions/Definitions Functional [place] Measure: 0=Not Assessed/NA 4=Minimal Assistance 1=Total Assistance 5=Supervision or Setup 2=Maximal Assistance 6=Modified [place] 3=Moderate Assistance 7=Complete IndependenceSCALE: Activities may be completed with or without assistive devices. 7-Ytpubqbyuv-aozncwe completes the activity by him/herself with no assistance from a helper. 5-Set-up or Clean-up Assistance-helper sets up or cleans up; patient completes activity. [place] assists only prior to or following the activity. 4-Supervision or Touching Assistance-helper provides verbal cues and/or touching/steadying and/or contact guard assistance as patient completes activity. Assistance may be provided throughout the activity or intermittently. 3-Partial/Moderate Assistance-helper does LESS THAN HALF the effort. [place] lifts, holds or supports trunk or limbs, but provides less than half the effort. 2-Substantial/Maximal Assistance-helper does MORE THAN HALF the effort. [place] lifts or holds trunk or limbs and provides more than half the effort. 1-Vifwssszv-dugfuh does ALL the effort. Patient does none of the effort to complete the activity. Or, the assistance of 2 or more helpers is required for the patient to complete the activity. If activity was not attempted, code reason: 7-Patient Refused. 9-Not Applicable-not attempted and the patient did not perform the activity before the current illness, exacerbation or injury. 10-Not Attempted due to Environmental Limitations-(lack of equipment, weather restraints, etc.). 88-Not Attempted due to Medical Conditions or Safety Concerns. Roll Left to Right (QC): 6 Sit to Lying (QC): 6 Sit to Stand (QC): 6 Chair/Dqn-vc-Zmpmm Xfer(QC): 6 Car Transfer (QC): 6 Gait Training Does the Patient Walk?: Yes Distance: 150' x2 Walk 10 feet (QC): 4 Walk 50 ft with 2 Turns(QC): 4 Walk 150 ft (QC): 4 Walking 10ft/uneven surface-QC: 4 Gait Persons Needed: 1 Gait Assistive Device: FWW Wheelchair Training Does the Pt Use a Wheelchair?: Yes Distance: 100' Wheel 50 ft with 2 turns (QC): 3 Wheel 150 ft (QC): 88 Type of Wheelchair: Manual Stair Training Stair Training: Handrails/: 2 handrails #of Steps: 4 1 Step (curb) (QC): 4 4 Steps (QC): 4 12 Steps (QC): 88 Balance Picking up an Object (QC): 4 (CGA using cover machine operator) ADL-Treatment Eating (QC): 6 Oral Hygiene (QC): 4 Shower/Bathe Self (QC): 4 Upper Body Dressing (QC): 5 Lower Body Dressing (QC): 4 On/Off Footwear (QC): 5 Toileting Hygiene (QC): 4 Toilet Transfer (QC): 4 Assessment/Plan Assessment and Plan Assess & Plan/Chief Complaint Assessment: Right femoral neck fracture status post uncomplicated repair Hypertension Cardiac murmur obtaining echocardiogram Chronic kidney disease 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 Anemia of kidney disease Plan: Pain control Home meds Intensive rehab 05/23/22: Supportive care Pain control 05/24/2022: Continue aggressive therapy Supportive care 05/25/2022: Monitor pain 05/26/2022: Monitor closely 05/27/2022: Supportive care Monitor closely 05/28/2022: DC tomorrow (1) Right femoral shaft fracture DEBBIE LILLY DO May 28, 2022 06:29
[2022-05-28] MEDS: MULTIVIT W/MINERALS TAB (THERAGRAN M) PO SCH (06:32)
[2022-05-28 07:37] VITALS: BP 135/63
[2022-05-28] MEDS: amLODIPine 10 MG (NORVASC) TAB PO SCH (08:26)
[2022-05-28] MEDS: APIXABAN 2.5 MG (ELIQUIS) TABLET PO SCH ×2 (08:26→22:02)
[2022-05-28] MEDS: VITAMIN D3 25 MCG (1,000 UNITS) TABLET PO SCH (08:26)
[2022-05-28] MEDS: hydrALAZINE (APRESOLINE) 25 MG TAB PO SCH ×2 (08:27→22:02)
[2022-05-28] MEDS: MECOBALAMIN 1000 MCG SL SCH (08:30)
[2022-05-28] MEDS: SENNA W/DOCUSATE (SENOKOT S) TABLET PO SCH ×2 (08:40→22:26)
[2022-05-28] MEDS: DOCUSATE SODIUM 100 MG (COLACE) CAP PO SCH ×2 (08:40→22:25)
[2022-05-28] MEDS: polyethylene glycoL POWDER 17 GM (MIRALAX) PACK PO SCH ×2 (08:40→22:25)
--- NOTE | 2022-05-28 10:33 | Progress Note ---
CELESTINA VILLAREAL 05/28/22 1033: Progress Note S: Yao Connell is an 82 yo female who was admitted to inpatient rehab from [place] on 05/22 following percutaneous pinning for right femoral neck fracture secondary to a fall. The patient's PCP is Dr. Mejia in [place]. The patient is in her recliner at the time of encounter and reports she feels well today and feels improved on PT. She states her ambulation with a walker has improved. The patient denies any concerns of pain today. She also denies any decreased appetite, constipation, diarrhea, or urinary symptoms. O: VS stable: Temp 36.3 F; HR 78; RR 18; BP 146/64; SpO2 94% RA Exam: -Constitutional: Elderly white female seated in her bed. Appears comfortable. Calm and cooperative. -Cardiovascular: RRR. No murmurs. -Pulmonary: LCTAB. No wheezes, crackles, rales, rhonchi. -Peripheral Pulses: 2+ radial pulses bilaterally No new labs or imaging obtained since last check. A/P: 1. Right femoral neck fracture s/p - percutaneous pinning. Patient to continue OT and PT. Continue prescribed PO pain medications as needed. 2. Hypertension - continue medical management with Norvasc and hydralazine. Continue cardiac diet. 3. Chronic kidney disease Stage III, monitor Cr and BUN 4. DVT prophylaxis - Continue apixaban 5. Low total protein - Resolved on 05/27 6. Anemia - HGB 10.6. Continue monitoring HGB and for possible symptoms. DANIA LILLY DO 05/29/22 0517: Supervisory-Addendum Brief Verification & Attestation Participated in pt care: history, MDM, physical Personally performed: exam, history, MDM, supervision of care Care discussed with: Medical Student Procedures: n/a Results interpretation: Verified all documentation Verification and Attestation of Medical Student E/M Service A medical student performed and documented this service in my presence. I reviewed and verified all information documented by the medical student and made modifications to such information, when appropriate. I personally performed the physical exam and medical decision making. Dania Lilly May 29, 2022,05:16 CELESTINA VILLAREAL May 28, 2022 10:33 DANIA LILLY DO May 29, 2022 05:17
--- NOTE | 2022-05-28 10:55 | Occupational Ther Daily Note ---
OT Current Status-Daily Note Subjective Pt denies pain, reports excellent sleep last night. Appearance Pt returned to sitting in recliner, all needs within reach at OT departure. Mental Status/Objective Patient Orientation: Person, Place, Situation Attachments: Colostomy/Ileostomy ADL-Treatment Therapy Code Descriptions/Definitions Functional [place] Measure: 0=Not Assessed/NA 4=Minimal Assistance 1=Total Assistance 5=Supervision or Setup 2=Maximal Assistance 6=Modified [place] 3=Moderate Assistance 7=Complete IndependenceSCALE: Activities may be completed with or without assistive devices. 7-Kwqxvbfhmy-mnmmlpz completes the activity by him/herself with no assistance from a helper. 5-Set-up or Clean-up Assistance-helper sets up or cleans up; patient completes activity. [place] assists only prior to or following the activity. 4-Supervision or Touching Assistance-helper provides verbal cues and/or touch ing/steadying and/or contact guard assistance as patient completes activity. Assistance may be provided throughout the activity or intermittently. 3-Partial/Moderate Assistance-helper does LESS THAN HALF the effort. [place] lifts, holds or supports trunk or limbs, but provides less than half the effort. 2-Substantial/Maximal Assistance-helper does MORE THAN HALF the effort. [place] lifts or holds trunk or limbs and provides more than half the effort. 6-Sstceuhbw-flztyt does ALL the effort. Patient does none of the effort to complete the activity. Or, the assistance of 2 or more helpers is required for the patient to complete the activity. If activity was not attempted, code reason: 7-Patient Refused. 9-Not Applicable-not attempted and the patient did not perform the activity before the current illness, exacerbation or injury. 10-Not Attempted due to Environmental Limitations-(lack of equipment, weather restraints, etc.). 88-Not Attempted due to Medical Conditions or Safety Concerns. Eating (QC): 6 Oral Hygiene (QC): 6 (indep in sitting, SBA in standing) Shower/Bathe Self (QC): 4 Upper Body Dressing (QC): 5 Lower Body Dressing (QC): 4 On/Off Footwear: 6 Toileting Hygiene (QC): 4 Toilet Transfer (QC): 4 Shower performed; majority completed in sitting. Hip dressing covered prior to activity, C/D/I post task. Pt stood only briefly to wash quynh area/buttocks with close SBA. Cue needed for adherence to TTWB. Pt able to reach/wash all body parts without physical assistance. Clothing donned seated on shower bench. Again, cue only for maintaining weight bearing through RLE when standing to manage LB clothing over hips. Pt able to empty colostomy bag post set up. Other Treatment 2nd session: ([id number]) Pt participated in novel card game with focus on improving sequencing, memory, following directions, and attention needed for functional tasks. Post instruction, pt requires min-mod verbal cues on recall of game rules as well as strategic game play. She reports enjoyment of game at end of session but also states "I don't think I will remember the rules to teach my once i get home." Education OT Patient Education: Correct positioning, Modified ADL techniques, Purpose of tx/functional activities, Reviewed precautions, Rehab process, Safety issues, Transfer techniques Teaching Recipient: Patient Teaching Methods: Demonstration, Discussion Response to Teaching: Verbalize Understanding, Reinforcement Needed BIMS CAM BIMS Expression of Ideas and Wants: Without Difficulty Understanding Verbal Content: Understands Brief Interview/Mental Status: Yes IRF MARCUS BIMS: IRF MARCUS BIMS Response (Comments) Value Repitition of Three Words Three 3 Recalls Socks Yes, No Cue Required 2 Recalls Blue Yes, No Cue Required 2 Recalls Bed No, Could Not Recall 0 Year Correct 3 Month Accurate Within 5 Days 2 Day Incorrect or No Answer 0 Total 12 Should Staff Asses. Mental St.: No Notes: 06/20 CAM Mental Status Change/Baseline: 0 Inattention: 0 Disorganized thinkin Altered level of consciousness: 0 OT Short Term Goals Short Term Goals Time Frame: May 29, 2022 Eatin Oral hygiene: 5 Toileting hygiene: 4 Shower/bathe self: 4 Upper body dressin Lower body dressin Putting on/taking off footwear: 5 OT Correction Goals Marketing Analytics Manager Goals Time Frame: Jun 05, 2022 Acute change in mental status: 0 Inattention: 0 Disorganized thinkin Altered level of consciousness: 0 Eating (QC): 6 (met) Oral Hygiene (QC): 6 (met) Toileting Hygiene (QC): 6 (not met) Shower/Bathe Self (QC): 5 (not met) Upper Body Dressing (QC): 6 (not met) Lower Body Dressing (QC): 6 (not met) On/Off Footwear (QC): 6 (met) Additional Goals: 1-Demonstrate ADL Tasks, 2-Verbalize Understanding, 3- ImproveStrength/Kaity 1=Demonstrate adherence to instructed precautions during ADL tasks. 2=Patient will verbalize/demonstrate understanding of assistive devices/modifications for ADL. 3=Patient will improve strength/tolerance for activity to enable patient to perform ADL's. Pt requires cues for safety and adherence to TTWB with all standing functional tasks. She does not require any physical assistance with tasks. OT Education/Plan Problem List/Assessment Assessment: Decreased Activ Tolerance, Decreased Safety Aware, Decreased UE Strength, Impaired Cognition, Impaired Funct Balance, Impaired I ADL's, Impaired Self-Care Skills Discharge Recommendations Plan/Recommendations: Continue POC Therapy Discharge Recommendati: Post Acute OT (home health OT) Treatment Plan/Plan of Care Treatment,Training & Education: Yes Patient would benefit from OT for education, treatment and training to promote independence in ADL's, mobility, safety and/or upper extremity function for ADL's. Plan of Care: ADL Retraining, Functional Mobility, Group Exercise/Act as Ind, UE Funct Exercise/Act Treatment Duration: Jun 05, 2022 Frequency: At least 5 of 7 days/Wk (IRF) Estimated Hrs Per Day: 1.5 hours per day (75-90 min/day ) Agreement: Yes Rehab Potential: Good Time Start Time: 10:00 (1255) Stop Time: 11:00 (1325) DATE: May 28, 2022 Total Time Billed (hr/min): 90 Billed Treatment Time 1st visit ADL x4 (60 min) 2nd visit FA x2 (30 min) Sia Dobbins OT May 28, 2022 10:55
--- NOTE | 2022-05-28 12:09 | Physical Therapy Daily Note ---
PT Daily Note-Current Subjective Pt sitting in recliner upon arrival. Pt agrees to PT. Pain Section J - Health Conditions 1. Rarely or not at all 2. Occasionally 3. Frequently 4. Almost constantly 8. Unable to answer Pain Effect on Sleep: 3 (1) Pain Interference with Therapy: 1 Pain Interference w/Day-to-Day: 3 Mental Status Patient Orientation: Person, Place, Time, Situation Transfers SCALE: Activities may be completed with or without assistive devices. 6-Udjsyrvveo-lbwcabi completes the activity by him/herself with no assistance from a helper. 5-Set-up or Clean-up Assistance-helper sets up or cleans up; patient completes activity. [place] assists only prior to or following the activity. 4-Supervision or Touching Assistance-helper provides verbal cues and/or touching/steadying and/or contact guard assistance as patient completes activity. Assistance may be provided throughout the activity or intermittently. 3-Partial/Moderate Assistance-helper does LESS THAN HALF the effort. [place] lifts, holds or supports trunk or limbs, but provides less than half the effort. 2-Substantial/Maximal Assistance-helper does MORE THAN HALF the effort. [place] lifts or holds trunk or limbs and provides more than half the effort. 6-Zvttoursf-xwtbas does ALL the effort. Patient does none of the effort to complete the activity. Or, the assistance of 2 or more helpers is required for the patient to complete the activity. If activity was not attempted, code reason: 7-Patient Refused. 9-Not Applicable-not attempted and the patient did not perform the activity before the current illness, exacerbation or injury. 10-Not Attempted due to Environmental Limitations-(lack of equipment, weather restraints, etc.). 88-Not Attempted due to Medical Conditions or Safety Concerns. Roll Left & Right (QC): 6 Sit to Lying (QC): 6 Lying to Sitting/Side of Bed(Q: 6 Sit to Stand (QC): 6 Chair/Xky-wy-Bvjhg Xfer(QC): 6 Toilet Transfer (QC): 6 Car Transfer (QC): 6 Weight Bearing Right Lower Extremity: Right Touch Toe Bearing Left Lower Extremity: Left Full Weight Bearing Gait Training Does the Patient Walk?: Yes Distance: 150' x2 Walk 10 feet (QC): 5 Walk 50 ft with 2 Turns(QC): 4 Walk 150 ft (QC): 4 Walking 10ft/uneven surface-QC: 4 Gait Assistive Device: FWW Pt is able to complete amb. w/o assistance but continues to weight bear more than TTWB as set by Surgeon so VC are needed frequently. Wheelchair Training Does the Pt Use a Wheelchair?: No Stair Training Stair Training: Handrails/: 1 handrail #of Steps: 4 1 Step (curb) (QC): 4 4 Steps (QC): 4 12 Steps (QC): 88 Stairs: Pattern: Step to Pt continues to demonstrate difficulty maintaining WB status, fatigues too much for safety of completing 12 steps. Ramp is being built and should be ready by d/c tomorrow. Balance Picking up an Object (QC): 4 Special Test Comments uses geospatial technician in standing position Exercises NuStep Minutes: 10 NuStep Workload: 5 (L side only, R side not used) Treatments Pt completes QC scoring items listed above as well as amb. in hallway and uses NuStep before returning to room at end of tx to rest in recliner for lunch. All needs met, call light in hand. Assessment Current Status: Fair Progress Pt can complete tasks but not w/o breaking Weight Bearing status. Pt continues to be given VC but cannot maintain status. PT Short Term Goals Short Term Goals Time Frame: May 22, 2022 Sit to stand: 4 (SBA) Chair/emu-kp-dfpry transfer: 4 (SBA) Walk 10 feet: 4 (SBA) Walk 50 feet with two turns: 4 (SBA) Walk 150 feet: 4 (SBA) PT Memorial Designer Goals Memorial Designer Goals PT Memorial Designer Goals Time Frame: Jun 12, 2022 Roll Left & Right (QC): 6 Sit to Lying (QC): 6 Lying-Sitting on Side/Bed(QC): 6 Sit to Stand (QC): 6 Chair/Xtt-ke-Knyut Xfer(QC): 6 Toilet Transfer (QC): 6 Car Transfer (QC): 6 Does the Patient Walk: Yes Walk 10 feet (QC): 6 Walk 50ft with 2 Turns (QC): 6 Walk 150 ft (QC): 6 Walking 10ft on Uneven Surface: 6 1 Step (curb) (QC): 6 4 Steps (QC): 6 12 Steps (QC): 88 Picking up an Object (QC): 6 Wheel 50 feet with 2 turns (QC: 6 Type: Manual Wheel 150 feet: 6 Type: Manual PT Plan Problem List Problem List: Activity Tolerance, Functional Strength Treatment/Plan Treatment Plan: Continue Plan of Care Treatment Plan: Bed Mobility, Education, Functional Activity Kaity, Functional Strength, Group Therapy, Gait, Safety, Therapeutic Exercise, Transfers Treatment Duration: Jun 12, 2022 Frequency: At least 5 of 7 days/Wk (IRF) Estimated Hrs Per Day: 1.5 hours per day Patient and/or Family Agrees t: Yes Safety Risks/Education Patient Education: Gait Training, Safety Issues Teaching Recipient: Patient Teaching Methods: Discussion Response to Teaching: Verbalize Understanding Time Time In: 1100 Time Out: 1200 DATE: May 28, 2022 Total Billed Treatment Time: 60 Total Billed Treatment 1, GT (20m), EX (10m) & FA x2 (30m) ABY MARTIN CPA TAX May 28, 2022 12:09
--- NOTE | 2022-05-28 15:54 | Physical Therapy Daily Note ---
PT Daily Note-Current Subjective Pt sitting in recliner upon arrival. Pt agrees to PT. Pain Section J - Health Conditions 1. Rarely or not at all 2. Occasionally 3. Frequently 4. Almost constantly 8. Unable to answer Pain Effect on Sleep: 3 (1) Pain Interference with Therapy: 1 Pain Interference w/Day-to-Day: 3 Mental Status Patient Orientation: Person, Place, Time, Situation Transfers SCALE: Activities may be completed with or without assistive devices. 5-Eztatagwjv-gfunwye completes the activity by him/herself with no assistance from a helper. 5-Set-up or Clean-up Assistance-helper sets up or cleans up; patient completes activity. [place] assists only prior to or following the activity. 4-Supervision or Touching Assistance-helper provides verbal cues and/or touching/steadying and/or contact guard assistance as patient completes activity. Assistance may be provided throughout the activity or intermittently. 3-Partial/Moderate Assistance-helper does LESS THAN HALF the effort. [place] lifts, holds or supports trunk or limbs, but provides less than half the effort. 2-Substantial/Maximal Assistance-helper does MORE THAN HALF the effort. [place] lifts or holds trunk or limbs and provides more than half the effort. 4-Jssriydjg-lnbldl does ALL the effort. Patient does none of the effort to complete the activity. Or, the assistance of 2 or more helpers is required for the patient to complete the activity. If activity was not attempted, code reason: 7-Patient Refused. 9-Not Applicable-not attempted and the patient did not perform the activity before the current illness, exacerbation or injury. 10-Not Attempted due to Environmental Limitations-(lack of equipment, weather restraints, etc.). 88-Not Attempted due to Medical Conditions or Safety Concerns. Sit to Stand (QC): 6 Toilet Transfer (QC): 6 Weight Bearing Right Lower Extremity: Right Touch Toe Bearing Left Lower Extremity: Left Full Weight Bearing Gait Training Does the Patient Walk?: Yes Distance: 15' x2 Walk 10 feet (QC): 4 Gait Assistive Device: FWW Treatments Pt TF to standing and amb. to BR. After toileting, pt returns to recliner to rest. MATERIAL HANDLER reviews written HEP as well as any questions including getting pt items ready for home. Pt resting at end of tx with all needs met, call light in hand. Assessment Current Status: Good Progress Pt rhys. tx well. PT Short Term Goals Short Term Goals Time Frame: May 22, 2022 Sit to stand: 4 (SBA) Chair/cxy-wy-yyqlf transfer: 4 (SBA) Walk 10 feet: 4 (SBA) Walk 50 feet with two turns: 4 (SBA) Walk 150 feet: 4 (SBA) PT Ecd Goals Skilled Nursing Goals PT Skilled Nursing Goals Time Frame: Jun 12, 2022 Roll Left & Right (QC): 6 Sit to Lying (QC): 6 Lying-Sitting on Side/Bed(QC): 6 Sit to Stand (QC): 6 Chair/Xjz-kp-Qppnm Xfer(QC): 6 Toilet Transfer (QC): 6 Car Transfer (QC): 6 Does the Patient Walk: Yes Walk 10 feet (QC): 6 Walk 50ft with 2 Turns (QC): 6 Walk 150 ft (QC): 6 Walking 10ft on Uneven Surface: 6 1 Step (curb) (QC): 6 4 Steps (QC): 6 12 Steps (QC): 88 Picking up an Object (QC): 6 Wheel 50 feet with 2 turns (QC: 6 Type: Manual Wheel 150 feet: 6 Type: Manual PT Plan Problem List Problem List: Functional Strength, Gait Treatment/Plan Treatment Plan: Continue Plan of Care Treatment Plan: Bed Mobility, Education, Functional Activity Kaity, Functional Strength, Group Therapy, Gait, Safety, Therapeutic Exercise, Transfers Treatment Duration: Jun 12, 2022 Frequency: At least 5 of 7 days/Wk (IRF) Estimated Hrs Per Day: 1.5 hours per day Patient and/or Family Agrees t: Yes Safety Risks/Education Patient Education: Gait Training, Correct Positioning, Safety Issues Teaching Recipient: Patient Teaching Methods: Discussion Response to Teaching: Verbalize Understanding Time Time In: 1415 Time Out: 1445 DATE: May 28, 2022 Total Billed Treatment Time: 30 Total Billed Treatment 1, FA x2 (30m) ABY MARTIN MATERIAL HANDLER May 28, 2022 15:54
[2022-05-28] MEDS ORDERED: APIX2.5T PO (20:09)
[2022-05-28] MEDS ORDERED: ACHD5005 PO (20:09)
[2022-05-28 20:22] VITALS: BP 144/71
--- NOTE | 2022-05-29 05:24 | Discharge Summary ---
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 Anemia of kidney disease Plan: Pain control Home meds Intensive rehab 05/23/22: Supportive care Pain control 05/24/2022: Continue aggressive therapy Supportive care 05/25/2022: Monitor pain 05/26/2022: Monitor closely 05/27/2022: Supportive care Monitor closely 05/28/2022: DC tomorrow (1) Right femoral shaft fracture Discharge Summary Discharge Physical Examination Allergies: Coded Allergies: Penicillins (Verified Allergy, Unknown, 05/27/22) pneumococcal vaccine (Verified Allergy, Unknown, 05/27/22) Vitals & I&Os Vital Signs Date Time Temp Pulse Resp B/P (MAP) Pulse Ox O2 Delivery O2 Flow Rate FiO2 05/29/22 14:23 36.5 55 18 143/69 94 Room Air General Appearance: Alert, Oriented X3, Cooperative Respiratory: Clear to Auscultation Cardiovascular: Regular Rate Neuro: Normal Gait Psych/Mental Status: Mental Status NL Hospital Course Was the Problem List Reviewed?: Yes Uneventful course after she was admitted from OSH after hip fracture repair. Patient was maintained on DVT PPx with low dose OAC. Pain was controlled with mostly APAP. Colostomy remained stable with good output. No falls occurred. Overall she did well and was ready for DC and did not need outpatient therapy or HH. Labs (last 24 hrs) Laboratory Tests 05/23/22 05:20: White Blood Count 5.5, Red Blood Count 3.58L, Hemoglobin 10.9L, Hematocrit 34L, Mean Corpuscular Volume 94, Mean Corpuscular Hemoglobin 30, Mean Corpuscular Hemoglobin Concent 33, Red Cell Distribution Width 12.6, Platelet Count 236, Mean Platelet Volume 9.8, Immature Granulocyte % (Auto) 0, Neutrophils (%) (Auto) 72, Lymphocytes (%) (Auto) 17, Monocytes (%) (Auto) 8, Eosinophils (%) (Auto) 3, Basophils (%) (Auto) 0, Neutrophils # (Auto) 4.0, Lymphocytes # (Auto) 0.9L, Monocytes # (Auto) 0.4, Eosinophils # (Auto) 0.2, Basophils # (Auto) 0.0, Immature Granulocyte # (Auto) 0.0, Sodium Level 139, Potassium Level 4.8, Chloride Level 105, Carbon Dioxide Level 26, Anion Gap 8, Blood Urea Nitrogen 22H, Creatinine 1.32H, Estimat Glomerular Filtration Rate 41, BUN/Creatinine Ratio 17, Glucose Level 123H, Calcium Level 9.2, Corrected Calcium 9.7, Total Bilirubin 0.3, Aspartate Amino Transf (AST/SGOT) 16, Alanine Aminotransferase (ALT/SGPT) 6, Alkaline Phosphatase 64, Total Protein 6.3L, Albumin 3.4 05/27/22 05:56: White Blood Count 6.6, Red Blood Count 3.51L, Hemoglobin 10.6L, Hematocrit 33L, Mean Corpuscular Volume 93, Mean Corpuscular Hemoglobin 30, Mean Corpuscular Hemoglobin Concent 33, Red Cell Distribution Width 12.7, Platelet Count 297, Mean Platelet Volume 9.9, Immature Granulocyte % (Auto) 1, Neutrophils (%) (Auto) 75, Lymphocytes (%) (Auto) 15, Monocytes (%) (Auto) 8, Eosinophils (%) (Auto) 2, Basophils (%) (Auto) 1, Neutrophils # (Auto) 4.9, Lymphocytes # (Auto) 1.0, Monocytes # (Auto) 0.5, Eosinophils # (Auto) 0.2, Basophils # (Auto) 0.0, Immature Granulocyte # (Auto) 0.0, Sodium Level 142, Potassium Level 4.2, Chloride Level 107, Carbon Dioxide Level 25, Anion Gap 10, Blood Urea Nitrogen 30H, Creatinine 1.44H, Estimat Glomerular Filtration Rate 37, BUN/Creatinine Ratio 21, Glucose Level 121H, Calcium Level 9.2, Corrected Calcium 9.8, Total Bilirubin 0.4, Aspartate Amino Transf (AST/SGOT) 11, Alanine Aminotransferase (ALT/SGPT) 8, Alkaline Phosphatase 67, Total Protein 6.4, Albumin 3.2 Pending Labs Laboratory Tests 05/23/22 05:20: White Blood Count 5.5, Red Blood Count 3.58, Hemoglobin 10.9, Hematocrit 34, Mean Corpuscular Volume 94, Mean Corpuscular Hemoglobin 30, Mean Corpuscular Hemoglobin Concent 33, Red Cell Distribution Width 12.6, Platelet Count 236, Mean Platelet Volume 9.8, Immature Granulocyte % (Auto) 0, Neutrophils (%) (Auto) 72, Lymphocytes (%) (Auto) 17, Monocytes (%) (Auto) 8, Eosinophils (%) (Auto) 3, Basophils (%) (Auto) 0, Neutrophils # (Auto) 4.0, Lymphocytes # (Auto) 0.9, Monocytes # (Auto) 0.4, Eosinophils # (Auto) 0.2, Basophils # (Auto) 0.0, Immature Granulocyte # (Auto) 0.0, Sodium Level 139, Potassium Level 4.8, Chloride Level 105, Carbon Dioxide Level 26, Anion Gap 8, Blood Urea Nitrogen 22, Creatinine 1.32, Estimat Glomerular Filtration Rate 41, BUN/Creatinine Ratio 17, Glucose Level 123, Calcium Level 9.2, Corrected Calcium 9.7, Total Bilirubin 0.3, Aspartate Amino Transf (AST/SGOT) 16, Alanine Aminotransferase (ALT/SGPT) 6, Alkaline Phosphatase 64, Total Protein 6.3, Albumin 3.4 05/27/22 05:56: White Blood Count 6.6, Red Blood Count 3.51, Hemoglobin 10.6, Hematocrit 33, Mean Corpuscular Volume 93, Mean Corpuscular Hemoglobin 30, Mean Corpuscular Hemoglobin Concent 33, Red Cell Distribution Width 12.7, Platelet Count 297, Mean Platelet Volume 9.9, Immature Granulocyte % (Auto) 1, Neutrophils (%) (Auto) 75, Lymphocytes (%) (Auto) 15, Monocytes (%) (Auto) 8, Eosinophils (%) (Auto) 2, Basophils (%) (Auto) 1, Neutrophils # (Auto) 4.9, Lymphocytes # (Auto) 1.0, Monocytes # (Auto) 0.5, Eosinophils # (Auto) 0.2, Basophils # (Auto) 0.0, Immature Granulocyte # (Auto) 0.0, Sodium Level 142, Potassium Level 4.2, Chloride Level 107, Carbon Dioxide Level 25, Anion Gap 10, Blood Urea Nitrogen 30, Creatinine 1.44, Estimat Glomerular Filtration Rate 37, BUN/Creatinine Ratio 21, Glucose Level 121, Calcium Level 9.2, Corrected Calcium 9.8, Total Bilirubin 0.4, Aspartate Amino Transf (AST/SGOT) 11, Alanine Aminotransferase (ALT/SGPT) 8, Alkaline Phosphatase 67, Total Protein 6.4, Albumin 3.2 Discharge Home Medications: Active Scripts Active HYDROcodone/APAP 5 MG/325 MG TAB (Acetaminophen/Hydrocodone Bitart) 1 Tab Tab 1 Ea PO Q4H PRN Eliquis (Apixaban) 2.5 Mg Tablet 2.5 Mg PO BID Reported Calcium (Calcium Carbonate) 600 Mg Calcium (1500 Mg) Tablet 600 Mg PO DAILY Hydralazine HCl 50 Mg Tablet 50 Mg PO BID Amlodipine Besylate 10 Mg Tablet 10 Mg PO DAILY Flintstones with Iron Tab Chew (Pediatric Multivit No.203/Iron) 18 Mg Iron Tab.chew 1 Ea PO DAILY Aloe Vera 25 Mg Capsule 25 Mg PO DAILY Vitamin D3 (Cholecalciferol (Vitamin D3)) 25 Mcg (1000 Unit) Capsule 25 Mcg PO DAILY B-12 (Mecobalamin) 1,000 Mcg Tab.rapdis 1,000 Mcg SL DAILY l-Lysine (Lysine HCl) 500 Mg Capsule 500 Mg PO DAILY Instructions to patient/family Please see electronic discharge instructions given to patient. Diagnosis/Problems Diagnosis/Problems (1) Right femoral shaft fracture DEBBIE LILLY DO May 29, 2022 05:24
[2022-05-29] MEDS: MULTIVIT W/MINERALS TAB (THERAGRAN M) PO SCH (06:39)
[2022-05-29 07:30] VITALS: BP 143/69
[2022-05-29] MEDS: APIXABAN 2.5 MG (ELIQUIS) TABLET PO SCH (09:03)
[2022-05-29] MEDS: VITAMIN D3 25 MCG (1,000 UNITS) TABLET PO SCH (09:03)
[2022-05-29] MEDS: hydrALAZINE (APRESOLINE) 25 MG TAB PO SCH (09:03)
[2022-05-29] MEDS: SENNA W/DOCUSATE (SENOKOT S) TABLET PO SCH (09:03)
[2022-05-29] MEDS: amLODIPine 10 MG (NORVASC) TAB PO SCH (09:03)
[2022-05-29] MEDS: polyethylene glycoL POWDER 17 GM (MIRALAX) PACK PO SCH (09:04)
[2022-05-29] MEDS: DOCUSATE SODIUM 100 MG (COLACE) CAP PO SCH (09:05)
[2022-05-29] MEDS: MECOBALAMIN 1000 MCG SL SCH (09:05)
--- NOTE | 2022-05-29 09:23 | Progress Note ---
CELESTINA VILLAREAL 05/29/22 0923: Progress Note Yao Connell is an 82 yo female who was admitted with a diagnosis of right femoral neck fracture secondary to a fall onto concrete on 05/22. The patient had percutaneous pinning performed on her right femur and was admitted to the ARU for rehab. The patient has undergone PT/OT since admission is, at time of discharge, ambulatory with the assistance of a walker. The patient has no complaints of pain at time of discharge; pain was managed with hydrocodone- acetaminophen 5 mg and acetaminophen. She is with normal vital signs on discharge. Eliquis was initiated for DVT prophylaxis. The patient's chronic disorders were managed with home medications. The patient is eating and drinking well on discharge with no concern for urinary symptoms, constipation, or diarrhea. Labs were only notable for mild anemia and signs of CKD, no concerns on discharge. Physical exam at time of discharge is reassuring with normal heart and lung sounds. DANIA LILLY DO 05/29/22 1638: Supervisory-Addendum Brief Verification & Attestation Participated in pt care: history, MDM, physical Personally performed: exam, history, MDM, supervision of care Care discussed with: Medical Student Procedures: n/a Results interpretation: Verified all documentation Verification and Attestation of Medical Student E/M Service A medical student performed and documented this service in my presence. I reviewed and verified all information documented by the medical student and made modifications to such information, when appropriate. I personally performed the physical exam and medical decision making. Dania Lilly May 29, 2022,16:38 CELESTINA VILLAREAL May 29, 2022 09:23 DANIA LILLY DO May 29, 2022 16:38
--- NOTE | 2022-05-29 10:01 | Therapy Team Discharge Summary ---
Therapy Discharge Summary Discharge Recommendations Date of Discharge Therapy D/C Recommendations: Home w/ Family Support, Occupational Therapy Home Care, Homemaker Support Physical Therapy Roll Left to Right (QC): 6 Sit to Lying (QC): 6 Lying to Sitting/Side of Bed(Q: 6 Sit to Stand (QC): 6 Chair/Qqk-ci-Xshad Xfer(QC): 6 Toilet Transfer (QC): 5 Car Transfer (QC): 6 Does the Patient Walk: Yes Mode of Locomotion: Walk Anticipated Mode of Locomotion: Walk Walk 10 feet (QC): 4 Walk 50 ft with 2 Turns(QC): 4 Walk 150 ft (QC): 4 Walking 10ft on uneven surface: 4 Distance: 10', 25', 10' Gait Assistive Device: FWW Does the Pt Use a Wheelchair: No Wheelchair Distance: 100' Wheel 50 ft with 2 turns (QC): 3 Wheel 150 ft (QC): 88 Type of Wheelchair: Manual #of Steps: 4 1 Step (curb) (QC): 4 4 Steps (QC): 4 12 Steps (QC): 88 Walking Assistive Device: Walker Balance Sitting Static: Normal Balance Sitting Dynamic: Normal Balance-Standing Static: Normal Picking up an Object (QC): 4 Occupational Therapy Pt admitted to ARU s/p R hip nailing. At time of evaluation she was, CGA for oral care, bathing, lower body dressing, toileting, footwear, and transfers, and set up for upper body dressing. During her rehab stay, OT focused on safety, balance, adherence to weight bearing restrictions, endurance, strengthening, memory, and problem solving. Pt made fair progress but did not meet all of her half-way goals secondary to inability to comply to TTWB status. Pt does not require any physical assistance with tasks but does require cues for safety. See below for current levels of assistance. Pt will be discharging from this facility today and will be discharged from OT at this time. Decreased Activ Tolerance, Decreased Safety Aware, Decreased UE Strength, Impaired Cognition, Impaired Funct Balance, Impaired I ADL's, Impaired Self-Care Skills Eating (QC): 6 Oral Hygiene (QC): 6 (indep in sitting, SBA in standing) Shower/Bathe Self (QC): 4 Upper Body Dressing (QC): 5 Lower Body Dressing (QC): 4 On/Off Footwear (QC): 6 Toileting Hygiene (QC): 4 PT Shelter Goals Shelter Goals PT Shelter Goals Time Frame: Jun 12, 2022 Roll Left to Right (QC): 6 Sit to Lying (QC): 6 Lying-Sitting on Side/Bed(QC): 6 Sit to Stand (QC): 6 Chair/Lzs-jy-Vmhns Xfer(QC): 6 Toilet/Commode Transfer (QC): 6 Car Transfer (QC): 6 Does the Patient Walk: Yes Walk 10 feet (QC): 6 Walk 10ft-Uneven Surface(QC): 6 Walk 50ft with 2 Turns (QC): 6 Walk 150 ft (QC): 6 Wheel 50 feet with 2 turns (QC: 6 Type: Manual Wheel 150 feet: 6 Type: Manual 1 Step (curb) (QC): 6 4 Steps (QC): 6 12 Steps (QC): 88 Picking up an Object (QC): 6 OT Shading Painter Goals Shelter Goals Time Frame: Jun 05, 2022 Acute change in mental status: 0 Inattention: 0 Disorganized thinkin Altered level of consciousness: 0 Eating (QC): 6 (met) Oral Hygiene (QC): 6 (met) Toileting Hygiene (QC): 6 (not met) Shower/Bathe Self (QC): 5 (not met) Upper Body Dressing (QC): 6 (not met) Lower Body Dressing (QC): 6 (not met) On/Off Footwear (QC): 6 (met) Additional Goals: 1-Demonstrate ADL Tasks, 2-Verbalize Understanding, 3- ImproveStrength/Kaity 1=Demonstrate adherence to instructed precautions during ADL tasks. 2=Patient will verbalize/demonstrate understanding of assistive devices/modifications for ADL. 3=Patient will improve strength/tolerance for activity to enable patient to perform ADL's. Sia Dobbins OT May 29, 2022 10:01
[2022-05-29 14:23] VITALS: BP 143/69
--- NOTE | 2022-05-31 15:02 | Therapy Team Discharge Summary ---
Therapy Discharge Summary Discharge Recommendations Date of Discharge May 29, 2022 at 13:00 Therapy D/C Recommendations: Home w/ Family Support, Occupational Therapy Home Care, Homemaker Support Physical Therapy Patient came to rehab s/p R hip nailing. Upon evaluation patient performed rolling and supine <-> sit with CGA, sit <-> stand and transfers CGA, car transfer CGA, ambulated 25' with a rolling walker with CGA (including 10' over an uneven surface), propelled a manual WC 100' with min assist, went up and down 1 step using a rolling walker with CGA, and picked up an object from the floor using a tomato paste maker with CGA. Patient has been performing bed mobility and transfer training, balance and endurance training, functional strengthening, stair training, gait training, and education. Patient has made some progress but has only met her fpc goals with bed mobility and transfers, patient also is not compliant with her weight bearing status and needs constant cues to correct. Now, patient performs rolling and supine <-> sit with independence, sit <-> stand and transfers independent, car transfer independent, ambulates 150' with a rolling walker with CGA/SBA (including 50' with at least 2 turns of 90 degrees and 10' over an uneven surface), can go up and down 4 steps using 1 handrail with CGA/SBA, and can apple picker an object from the floor using a tomato paste maker with CGA/SBA. Patient has been discharged from this facility and will be discharged from PT at this time. Roll Left to Right (QC): 6 Sit to Lying (QC): 6 Lying to Sitting/Side of Bed(Q: 6 Sit to Stand (QC): 6 Chair/Ejz-ka-Olwkl Xfer(QC): 6 Toilet Transfer (QC): 5 Car Transfer (QC): 6 Does the Patient Walk: Yes Mode of Locomotion: Walk Anticipated Mode of Locomotion: Walk Walk 10 feet (QC): 4 Walk 50 ft with 2 Turns(QC): 4 Walk 150 ft (QC): 4 Walking 10ft on uneven surface: 4 Distance: 10', 25', 10' Gait Assistive Device: FWW Does the Pt Use a Wheelchair: No Wheelchair Distance: 100' Wheel 50 ft with 2 turns (QC): 4 Wheel 150 ft (QC): 88 Type of Wheelchair: Manual #of Steps: 4 1 Step (curb) (QC): 4 4 Steps (QC): 4 12 Steps (QC): 88 Walking Assistive Device: Walker Balance Sitting Static: Normal Balance Sitting Dynamic: Normal Balance-Standing Static: Normal Picking up an Object (QC): 4 Occupational Therapy Decreased Activ Tolerance, Decreased Safety Aware, Decreased UE Strength, Impaired Cognition, Impaired Funct Balance, Impaired I ADL's, Impaired Self-Care Skills Eating (QC): 6 Oral Hygiene (QC): 6 (indep in sitting, SBA in standing) Shower/Bathe Self (QC): 4 Upper Body Dressing (QC): 5 Lower Body Dressing (QC): 4 On/Off Footwear (QC): 6 Toileting Hygiene (QC): 4 PT Personalization Specialist Goals Personalization Specialist Goals PT Personalization Specialist Goals Time Frame: Jun 12, 2022 Roll Left to Right (QC): 6 Sit to Lying (QC): 6 Lying-Sitting on Side/Bed(QC): 6 Sit to Stand (QC): 6 Chair/Zsb-ae-Hltmg Xfer(QC): 6 Toilet/Commode Transfer (QC): 6 Car Transfer (QC): 6 Does the Patient Walk: Yes Walk 10 feet (QC): 6 Walk 10ft-Uneven Surface(QC): 6 Walk 50ft with 2 Turns (QC): 6 Walk 150 ft (QC): 6 Wheel 50 feet with 2 turns (QC: 6 Type: Manual Wheel 150 feet: 6 Type: Manual 1 Step (curb) (QC): 6 4 Steps (QC): 6 12 Steps (QC): 88 Picking up an Object (QC): 6 OT Personalization Specialist Goals Personalization Specialist Goals Time Frame: Jun 05, 2022 Acute change in mental status: 0 Inattention: 0 Disorganized thinkin Altered level of consciousness: 0 Eating (QC): 6 (met) Oral Hygiene (QC): 6 (met) Toileting Hygiene (QC): 6 (not met) Shower/Bathe Self (QC): 5 (not met) Upper Body Dressing (QC): 6 (not met) Lower Body Dressing (QC): 6 (not met) On/Off Footwear (QC): 6 (met) Additional Goals: 1-Demonstrate ADL Tasks, 2-Verbalize Understanding, 3- ImproveStrength/Kaity 1=Demonstrate adherence to instructed precautions during ADL tasks. 2=Patient will verbalize/demonstrate understanding of assistive devices/modifications for ADL. 3=Patient will improve strength/tolerance for activity to enable patient to perform ADL's. ELAINE LOVELL PT May 31, 2022 15:02
== END 2022-05-29 13:00 | disposition home or self-care (01) | DRG 561 ==
PROVIDERS: ADMIT Internal Medicine; ATTEND Internal Medicine
DX: S72.001D Fracture of unspecified part of neck of right femur, subsequent encounter for closed fracture with routine healing (principal); I12.9 Hypertensive chronic kidney disease with stage 1 through stage 4 chronic kidney disease, or unspecified chronic kidney disease; N18.30 Chronic kidney disease, stage 3 unspecified; D63.1 Anemia in chronic kidney disease; R01.1 Cardiac murmur, unspecified; Z89.421 Acquired absence of other right toe(s); Z93.3 Colostomy status; Z79.01 Long term (current) use of anticoagulants; W19.XXXD Unspecified fall, subsequent encounter
CPT/HCPCS: 36415; 80053; 85025; 93005; 93306